=== PATIENT | female | born 1940 | race Caucasian/White ===

== ENCOUNTER 2018-10-08 10:32 | Inpatient (IN) | payer MEDICAID, MEDICARE, OTHER ==
[~2018-10-08] VITALS: Ht 172.7 cm; Wt 68.0 kg
[~2018-10-08 10:32] MED LIST: ASPIRIN81 M2 PO; Z.0.B-121000 MCG PO
[2018-10-08] MEDS ORDERED: METHYLPREDNISOLONE SOD SUCC 125 MG/2ML VIAL IV ONE ×2 (11:00→16:30)
[2018-10-08] MEDS: ALBUTEROL/IPRATROPIUM 3 ML NEB NEB SCH ×3 (11:00→19:15)
[2018-10-08 11:36] LABS: BASOPHILS % 0.2 % (0.0-1.0); EOSINOPHILS # (AUTO) 0.1 (0.0-0.4); EOSINOPHILS % 0.8 % (0.0-6.0); HEMATOCRIT 26.6 % (34.2-44.1); HEMOGLOBIN 8.2 g/dL (12.0-16.0); LYMPHOCYTES # (AUTO) 0.8 (1.0-3.2); LYMPHOCYTES % 5.8 % (18.0-39.1); MEAN CORPUSCULAR HEMOGLOBIN 22.1 pg (28-32); MEAN CORPUSCULAR HGB CONC 30.8 g/dL (31-35); MEAN CORPUSCULAR VOLUME 71.7 fL (81-99); MONOCYTES # (AUTO) 1.2 (0.2-0.8); MONOCYTES % 8.4 % (4.4-11.3); NEUTROPHILS # (AUTO) 11.9 (2.1-6.9); PLATELET COUNT 325 x10e3/uL (140-360); RED BLOOD COUNT 3.71 x10e6/uL (3.6-5.1); RED CELL DISTRIBUTION WIDTH 18.6 % (11.7-14.4)
[2018-10-08 11:49] LABS: CLARITY,URINE HAZY (CLEAR); COLOR,URINE YELLOW (YELLOW); LEUKOCYTE ESTERASE ,URINE TRACE (NEGATIVE); NITRITE,URINE NEGATIVE (NEGATIVE); PROTEIN,URINE DIPSTICK TRACE (NEGATIVE)
[2018-10-08 11:50] LABS: BILIRUBIN,URINE NEGATIVE (NEGATIVE); KETONES,URINE NEGATIVE (NEGATIVE); URINE UROBILINOGEN 4 mg/dL (0.2 - 1)
[2018-10-08 11:59] LABS: ALBUMIN/GLOBULIN RATIO 0.7 (0.8-2.0); ALKALINE PHOSPHATASE 87 IU/L (40-150); ANION GAP 12.8 mmol/L (8-16); BLOOD UREA NITROGEN 10 mg/dL (7-26); BUN/CREATININE RATIO 13 (6-25); CALCIUM 9.2 mg/dL (8.4-10.2); CARBON DIOXIDE 25 mmol/L (22-29); CHLORIDE 91 mmol/L (98-107); CREATINE KINASE 27 IU/L (29-168); CREATININE, SERUM 0.79 mg/dL (0.57-1.11); EST GLOMERULAR FILTRATION RATE > 60 ML/MIN (60-); GLUCOSE 110 mg/dL (74-118); POTASSIUM 3.8 mmol/L (3.5-5.1); SODIUM 125 mmol/L (136-145)
--- NOTE | 2018-10-08 11:59 | Diagnostic Imaging Report ---
Examination: Single AP view of the chest. COMPARISON: None. INDICATION: Shortness of breath, COPD, bronchitis DISCUSSION: The lungs are hyperinflated with hyperlucency of the left lung apex. Calcified left basal granuloma. Right apical pleural-parenchymal scar. No airspace consolidation or pneumothorax. Tortuosity and atherosclerotic calcification of the thoracic aorta. No acute osseous abnormality. IMPRESSION: Pulmonary hyperinflation in keeping with COPD. Multifocal fibrotic changes, likely postinfectious and/or age-related. No consolidative pneumonia. Signed by: Dr. Feliz Tellez M.D. on 10/08/2018 11:56 AM
[2018-10-08 12:02] LABS: ALANINE AMINOTRANSFERASE < 6 IU/L (0-55)
[2018-10-08 12:17] LABS: BACTERIA,URINE FEW /HPF; EPITHELIAL CELLS,URINE RARE /LPF; TRANSITIONAL EPI CELLS,URINE RARE; WBC,URINE (MAN) 0-5 /HPF (0-5)
[2018-10-08 12:32] LABS: INR 0.93
[2018-10-08 12:33] LABS: PARTIAL THROMBOPLASTIN TIME 30.3 seconds (23.8-35.5)
[2018-10-08] MEDS ORDERED: ACETAMINOPHEN 325 MG TAB PO ONE (15:45)
[2018-10-08] MEDS ORDERED: CEFTRIAXONE SOD 1 GM/NS 50 ML 50 ML IV ONE (15:45)
[2018-10-08 16:15] LABS: ABG HCO3 22 mmol/L (23-28); ABG PCO2 34 mmHg (41-51); ABG PH 7.43 (7.31-7.41); ABG PO2 114 mmHg (80-105)
[2018-10-08 17:04] LABS: STREPTOCOCCUS GRP A ANTIGEN NEGATIVE (NEGATIVE)
[2018-10-08 17:14] LABS: INFLUENZAE A&B ANTIGEN (RAPID) NEGATIVE (NEGATIVE)
[2018-10-08] MEDS: ALBUTEROL SULF 0.083% NEB SOLN 3 ML NEB NEB SCH ×2 (20:15→23:00)
[2018-10-08] MEDS ORDERED: CEFTRIAXONE SOD 1 GRAM/0.9% SOD CHL 50ML BAG IV SCH (20:15)
[2018-10-08] MEDS ORDERED: AZITHROMYCIN 500MG/SOD CHL 0.9% 250ML BAG IV SCH (20:15)
--- NOTE | 2018-10-08 20:25 | Diagnostic Imaging Report ---
EXAMINATION: CT of the chest with contrast, PE protocol. TECHNIQUE: Spiral CT images of the chest were performed from the lung apices through the level of the adrenal glands after the IV administration of 100 cc of Isovue 370. Thin section reconstructions were obtained with special concentration on the pulmonary arteries. Coronal and sagittal reformatted images were performed. COMPARISON: <none> CLINICAL HISTORY:Hypoxemia DISCUSSION: Lungs: No filling defects are identified in the main, right or left pulmonary arteries to their segmental levels, to suggest pulmonary embolism. Marked bilateral centrilobular emphysematous changes. Focal, irregular shaped area of consolidation in the posterior right upper lobe (series 3, image 31), with posterior and inferior extension along the superior portion of the right major fissure (for exam double series 3, image 44). Biapical pleural parenchymal scarring. Patchy groundglass opacities in the posterior aspect of the right lower lobe, which may reflect dependent atelectasis. Linear opacities in the left lower lobe (series 3, image 83) consistent with subsegmental atelectasis or scarring. Additional focal ground glass opacities are noted in the anterior right upper lobe against the minor fissure (series 3, image 67 and sagittal image 30). Airways: <The major airways are clear.> Pleura: <There is no evidence of pleural effusion or pneumothorax.> Heart and mediastinum: Thyroid is unremarkable. Heart size is normal. No pericardial effusion. Atherosclerotic calcification of the coronary arteries and thoracic aorta. Aorta is nonaneurysmal. Main pulmonary artery is normal in caliber, measuring 2.4 cm. Lymph nodes: Mildly enlarged right hilar node, which measures 1.1 cm in short axis (coronal image 41). No mediastinal or axillary adenopathy. Abdomen: The visualized portions of the liver, spleen, pancreas and kidneys and adrenal glands are unremarkable. Bones and soft tissues: No aggressive lytic lesions. Generalized osteopenia. Degenerative disc changes in the thoracic spine. Soft tissues are grossly unremarkable. IMPRESSION: 1. No CT evidence of pulmonary embolism. 2. Focal irregularly shaped area of consolidation in the posterior right upper lobe, which may represent pneumonia, in the appropriate clinical setting. A primary bronchogenic neoplasm is also a consideration, given the extensive emphysematous changes. Recommend follow-up chest CT 3-4 weeks after appropriate treatment for reevaluation. 3. Mildly enlarged right hilar node, likely reactive in the setting of infection or metastatic in the setting of neoplasm. 4. Additional focal groundglass opacities in the anterior right upper lobe against the minor fissure likely represent focal scarring Signed by: Dr. Cj Dominguez M.D. on 10/08/2018 8:22 PM
[2018-10-08] MEDS ORDERED: SODIUM CHLORIDE 0.9% 50ML 50 ML ONE (21:18)
[2018-10-08] MEDS ORDERED: IOPAMIDOL 370 MG/ML 200 ML INFUS..BTL INJ ONE (21:18)
[2018-10-08] MEDS: AZITHROMYCIN 500MG/NS 250 ML 250 ML IV SCH (21:38)
[2018-10-08 21:42] LABS: CREATINE KINASE MB 1.4 ng/mL (0-5.0)
[2018-10-08] MEDS ORDERED: METHYLPREDNISOLONE SOD SUCC 40 MG/ML VIAL 1ML IV SCH (22:00)
--- OUTSIDE RECORDS SUMMARY | 2018-10-08 22:55 | XMS REPORT ---
Author Author [facility] Address Unknown Phone Unavailable Care Team Providers Care Court Interpreter Name Role Phone Jorge L MENA Unavailable Unavailable Problems This patient has no known problems. Allergies, Adverse Reactions, Alerts This patient has no known allergies or adverse reactions. Medications This patient has no known medications. Results Test Description Test Time Test Comments Text Results Atomic Results Result Comments CT CHEST W 2018-10-08 20:13:00 [place] [address] Patient Name: VERONIKA PLATA MR #: [id number] : 1940 Age/Sex: 78/F Req #: [id number] Adm Physician: Ordered by: GABY DIEZ [employer] Report #: [id number] Location: ER Room/Bed: Procedure: [id number] CT/CT CHEST W Exam Date: 10/08/18 Exam Time: 1909 REPORT STATUS: Signed EXAMINATION: CT of the chest with contrast, PE protocol. TECHNIQUE: Spiral CT images of the chest were performed from the lung apices through the level of the adrenal glands after the IV administration of 100 cc of Isovue 370. Thin section reconstructions were obtained with special concentration on the pulmonary arteries. Coronal and sagittal reformatted images were performed. COMPARISON: <none> CLINICAL HISTORY:Hypoxemia DISCUSSION: Lungs: No filling defects are identified in the main, right or left pulmonary arteries to their segmental levels, to suggest pulmonary embolism. Marked bilateral centrilobular emphysematous changes. Focal, irregular shaped area of consolidation in the posterior right upper lobe (series 3, image 31), with posterior and inferior extension along the superior portion of the right major fissure (for exam double series 3, image 44). Biapical pleural parenchymal scarring. Patchy groundglass opacities in the posterior aspect of the right lower lobe, which may reflect dependent atelectasis. Linear opacities in the left lower lobe (series 3, image 83) consistent with subsegmental atelectasis or scarring. Additional focal ground glass opacities are noted in the anterior right upper lobe against the minor fissure (series 3, image 67 and sagittal image 30). Airways: <The major airways are clear.> Pleura: <There is no evidence of pleural effus ion or pneumothorax.> Heart and mediastinum: Thyroid is unremarkable. Heart size is normal. No pericardial effusion. Atherosclerotic calcification of the coronary arteries and thoracic aorta. Aorta is nonaneurysmal. Main pulmonary artery is normal in caliber, measuring 2.4 cm. Lymph nodes: Mildly enlarged right hilar node, which measures 1.1 cm in short axis (coronal image 41). No mediastinal or axillary adenopathy. Abdomen: The visualized portions of the liver, spleen, pancreas and kidneys and adrenal glands are unremarkable. Bones and soft tissues: No aggressive lytic lesions. Generalized osteopenia. Degenerative disc changes in the thoracic spine. Soft tissues are grossly unremarkable. IMPRESSION: 1. No CT evidence of pulmonary embolism. 2. Focal irregularly shaped area of consolidation in the posterior right upper lobe, which may represent pneumonia, in the appropriate clinical setting. A primary bronchogenic neoplasm is also a cons ideration, given the extensive emphysematous changes. Recommend follow-up chest CT 3-4 weeks after appropriate treatment for reevaluation. 3. Mildly enlarged right hilar node, likely reactive in the setting of infection or metastatic in the setting of neoplasm. 4. Additional focal groundglass opacities in the anterior right upper lobe against the minor fissure likely represent focal scarring Signed by: Dr. Vani Dominguez M.D. on 10/08/2018 8:22 PM Dictated By: VANI DOMINGUEZ MD 21 Transcribed By: EFREM on 10/08/182021 COPY TO: GABY DIEZ NP CHEST SINGLE (NOT PORTABLE) 2018-10-08 11:54:00 [place] [address] Patient Name: VERONIKA PLATA MR #: [id number] : 1940 Age/Sex: 78/F Req #: [id number] Adm Physician: Ordered by: GABY DIEZ NP Report #: [id number] Location: ER Room/Bed: Procedure: [id number] DX/CHEST SINGLE (NOT PORTABLE) Exam Date: 10/08/18 Exam Time: 1115 REPORT STATUS: Signed Examination: Single AP view of the chest. COMPARISON: None. INDICATION: Shortness of breath, COPD, bronchitis DISCUSSION: The lungs are hyperinflated with hyperlucency of the left lung apex. Calcified left basal granuloma. Right apical pleural-parenchymal scar. No airspace consolidation or pneumothorax. Tortuosity and atherosclerotic calcification of the thoracic aorta. No acute osseous abnormality. IMPRESSION: Pulmonary hyperinflation in keeping with COPD. Multifocal fibrotic changes, likely postinfectious and/or age- related. No consolidative pneumonia. Signed by: Kurt Ely on 10/08/2018 11:56 AM Dictated By: CHARLES FOSTER MD 115 Transcribed By: EFREM on 10/08/18 115 COPY TO: GABY DIEZ [employer]
[2018-10-09] MEDS: SODIUM CHLORIDE 0.9% 1000ML 1,000 ML IV SCH ×3 (02:12→15:27)
[2018-10-09] MEDS: ALBUTEROL/IPRATROPIUM 3 ML NEB NEB SCH (02:30)
[2018-10-09] MEDS: ALBUTEROL SULF 0.083% NEB SOLN 3 ML NEB NEB SCH ×4 (03:00→15:00)
--- NOTE | 2018-10-09 03:15 | Diagnostic Imaging Report ---
EXAMINATION: CHEST SINGLE (PORTABLE) INDICATION: Pneumonia. COMPARISON: Chest CT and chest x-ray 10/08/2018 FINDINGS: AP view TUBES and LINES: None. LUNGS: Right upper lobe patchy airspace opacities. Emphysematous changes. PLEURA: No pleural effusion or pneumothorax. HEART AND MEDIASTINUM: The cardiomediastinal silhouette is unremarkable. BONES AND SOFT TISSUES: No acute osseous lesion. Soft tissues are unremarkable. UPPER ABDOMEN: No free air under the diaphragm. IMPRESSION: Right upper lobe consolidation concerning for pneumonia in the appropriate clinical setting. Recommend follow-up chest CT in 3-4 weeks as recommended on chest CT report 10/08/2018. Signed by: DR. Virgilio Byrne MD on 10/09/2018 3:12 AM
--- NOTE | 2018-10-09 06:20 | NUR ---
History and Physical cc: hypoxia HPI: 78yoF, PCP , developed hypoxia in the 80s. Pt had cough/sob, went to urgent care, given steroids and antibiotics, went to PCP, found to have hypoxia, sent to hospital for mgmt. PMH: COPD, A.fib, PNA, HTN PSHx: unknown alleriges; see emr Fh/Sh; ; occ etoh; quit cigs; 38pk yrs meds; see MAR ROs; no SEYMOUR/vision changes/dizziness/skin rash/diarhea/vomiing; A/P: Hypoxia AECOPD with emphesematous changes Right upper lobe PNA Right hilar LAD Hyponatremia Moderate microcytic anemia Underweight state BMI 18.4 Former smoker PLAN IV abx IV steroids nebs/antihistamine Pulm consult Plan to recheck CT chest in 4 weeks Shalom Rasheed MD, PhD
[2018-10-09 06:44] LABS: HEMATOCRIT 24.3 % (34.2-44.1); HEMOGLOBIN 7.3 g/dL (12.0-16.0); LYMPHOCYTES # (AUTO) 0.4 (1.0-3.2); MEAN CORPUSCULAR HEMOGLOBIN 21.7 pg (28-32); MEAN CORPUSCULAR VOLUME 72.1 fL (81-99); MONOCYTES # (AUTO) 0.2 (0.2-0.8); MONOCYTES % 3.2 % (4.4-11.3); NEUTROPHILS # (AUTO) 6.2 (2.1-6.9); NEUTROPHILS % 89.5 % (38.7-80.0); PLATELET COUNT 291 x10e3/uL (140-360); RED BLOOD COUNT 3.37 x10e6/uL (3.6-5.1); RED CELL DISTRIBUTION WIDTH 18.6 % (11.7-14.4)
[2018-10-09] MEDS: IPRATROPIUM BROMIDE 0.02% 2.5 ML NEB NEB SCH ×5 (07:00→23:41)
[2018-10-09 07:06] LABS: ANION GAP 11.9 mmol/L (8-16); BLOOD UREA NITROGEN 13 mg/dL (7-26); BUN/CREATININE RATIO 20 (6-25); CALCIUM 8.8 mg/dL (8.4-10.2); CARBON DIOXIDE 23 mmol/L (22-29); CHLORIDE 99 mmol/L (98-107); CREATININE, SERUM 0.66 mg/dL (0.57-1.11); EST GLOMERULAR FILTRATION RATE > 60 ML/MIN (60-); GLUCOSE 124 mg/dL (74-118); POTASSIUM 3.9 mmol/L (3.5-5.1); SODIUM 130 mmol/L (136-145)
[2018-10-09 07:31] LABS: CREATINE KINASE MB 1.7 ng/mL (0-5.0)
--- NOTE | 2018-10-09 08:31 | Consultation ---
DATE OF CONSULTATION: Pulmonary Critical Care Consultation HISTORY OF PRESENT ILLNESS: The patient is an 78-year-old woman. She has a history of recurrent bronchitis. She uses Breo at home as well as a rescue inhaler. She notes dyspnea over the past 3 days. She does not complain of fevers or chest pain. PAST MEDICAL HISTORY: 1. History of recurrent bronchitis. 2. Atrial fibrillation. 3. Gastroesophageal reflux. PAST SURGICAL HISTORY: Noncontributory. ALLERGIES: THE PATIENT IS ALLERGIC TO CODEINE. FAMILY HISTORY: The family history is noncontributory. SOCIAL HISTORY: The patient quit smoking many years ago. She is not an active drinker. REVIEW OF SYSTEMS: The patient denies any fever. She has no headache. She has no neck pain. She has no sore throat. She is not having any chest pain. She does note some dyspnea. She denies abdominal pain. She has no nausea or vomiting. She has no leg edema. She has no focal neurological complaints. PHYSICAL EXAMINATION: VITAL SIGNS: The blood pressure is 104/43 and the saturation is 100% on 2 L. The pulse is 97 and the respiratory rate is 18. The T-max is 99.7. HEENT: Shows no facial swelling or erythema. The nasal mucosa is normal. The oropharynx is normal. LYMPHATIC: Shows no submandibular, cervical, or supraclavicular adenopathy. CARDIAC: Reveals a regular rate and rhythm with normal S1 and S2. There are no murmurs or rubs. LUNGS: Auscultation of lungs reveals clear breath sounds bilaterally. There is no wheezing. ABDOMEN: Soft and nontender. There is no rebound or guarding. EXTREMITIES: Show no leg edema or calf tenderness. There is no cyanosis or clubbing. SKIN: Shows no rashes. NEUROLOGICAL: Shows no focal abnormalities. LABORATORY DATA: White blood cell count is 14.2 and hemoglobin is 8.2 with an MCV of 71.7. The platelet count is 325. The sodium is 125, and the BUN to creatinine ratio is normal. The BNP is 244.9. The blood gas is 7.43, 34, 114, and 22. Influenza is negative. RADIOGRAPHIC DATA: CT scan of the chest shows a posterior right upper lobe infiltrate, suggestive of possible pneumonia. Malignancy cannot be completely excluded. IMPRESSION: 1. Community-acquired pneumonia with sepsis, present on admission. 2. Chronic obstructive pulmonary disease with acute exacerbation. 3. Microcytic anemia, secondary to chronic blood loss. PLAN: 1. The patient will be pancultured and will receive antibiotics. 2. Continue Breo as well as rescue medications as needed. 3. IV fluids. 4. Echocardiogram. 5. GI evaluation for microcytic anemia. MD ASHLEY Marinelli/ANN /[id number]
[2018-10-09] MEDS ORDERED: NON-FORMULARY MEDICATION (Aspirin 81 MG) PO SCH (09:00)
[2018-10-09] MEDS ORDERED: NON-FORMULARY MEDICATION (Cyanocobalamin (Vitamin B-12) (B-12) 1,000 MCG) PO SCH (09:00)
[2018-10-09 09:17] LABS: LYMPHOCYTES % (MANUAL) 5 % (19-48); MONOCYTES % (MANUAL) 2 % (3.4-9.0); NEUTROPHILS % (MANUAL) 93 % (40-74)
[2018-10-09] MEDS: METHYLPREDNISOLONE SOD SUCC 40 MG/ML VIAL 1ML IV SCH ×2 (10:35→22:36)
[2018-10-09] MEDS: LORATADINE 10 MG TAB PO SCH (10:36)
[2018-10-09] MEDS: ASPIRIN 81 MG ENTERIC COATED PO SCH (10:36)
[2018-10-09] MEDS: CYANOCOBALAMIN 1,000 MCG TAB PO SCH (10:37)
--- NOTE | 2018-10-09 11:08 | NUR ---
pt placed in hosp bed
[2018-10-09 14:36] LABS: CREATINE KINASE 26 IU/L (29-168)
[2018-10-09] MEDS: CEFTRIAXONE SOD 1 GM/NS 50 ML 50 ML IV SCH (15:27)
--- NOTE | 2018-10-09 17:02 | NUR ---
PT LIVES WITH HER [address] IN A HOUSE IN [place] [phone] NO DME OR HOME HEALTH HX COPD, ASTHMA, A FIB AND GERD LEFT MY CARD AT PT'S BEDSIDE PLAN: HOME WITH HOME HEALTH VS SNF
--- NOTE | 2018-10-09 17:13 | NUR ---
DR JONES IN ROOM WITH PT
[2018-10-09] MEDS ORDERED: ALBUTEROL SULFATE HFA 8GM INHALATION AEROSOL INH PRN (17:15)
[2018-10-09] MEDS ORDERED: METOPROLOL TARTRATE INJ 1 MG/ML VIAL IV PRN (17:30)
--- NOTE | 2018-10-09 17:35 | NUR ---
PT HR INCREASED TO OVER 120 EKG DONE PT IN A FIB RVR DR GALLO NOTIFIED PER DR GALLO D/C MED SURG BED MOVE PT TO IMCU ORDER METOPROLOL 10 MG IV NOW, METOPROLOL 5 MG IV Q2H PRN FOR HR > 120, D/C ALBUTEROL AND START LEVALBUTEROL Q4H, AYLIN HILL NOTIFIED, PT INFORMED
--- NOTE | 2018-10-09 17:39 | NUR ---
MED SURG 2 NOTIFIED OF PT NO LONGER GOING TO ROOM 203
[2018-10-09] MEDS ORDERED: METOPROLOL TARTRATE INJ 1 MG/ML VIAL IV NR (17:45)
--- NOTE | 2018-10-09 18:54 | Progress Note ---
DATE: 10/09/2018 Pulmonary Progress Note SUBJECTIVE: The patient had new onset of atrial fibrillation after receiving a breathing treatment. She does not complain of any chest pain. She has minimal cough. PHYSICAL EXAMINATION: VITAL SIGNS: The patient is afebrile. The blood pressure is 109/58 and the heart rate is 130-140. She has rapid atrial fibrillation. HEENT: Shows no facial swelling or erythema. The nasal mucosa is normal. The oropharynx is normal. LYMPHATIC: Shows no submandibular, cervical, or supraclavicular adenopathy. CARDIAC: Reveals an irregularly irregular rhythm with a normal S1 and S2. There are no murmurs or rubs heard. LUNGS: Auscultation of lungs reveals rhonchorous breath sounds bilaterally. There is no wheezing. ABDOMEN: Soft and nontender. There is no rebound or guarding. EXTREMITIES: Show no leg edema or calf tenderness. There is no cyanosis or clubbing. SKIN: Shows no rashes. NEUROLOGICAL: Shows no focal abnormalities. IMPRESSION: 1. Pneumonia. 2. Atrial fibrillation with rapid ventricular response. 3. Microcytic anemia secondary to chronic blood loss. 4. Chronic obstructive pulmonary disease. PLAN: 1. The patient will need diltiazem or another agent for rate control along with anticoagulation. 2. Stop nebulizer treatments unless absolutely necessary. 3. Continue IV antibiotics. 4. Evaluation for microcytic anemia. 5. Case discussed with family, nursing, and Dr. Rasheed. Rustam Cortez MD LM/ANN /[id number]
[2018-10-09] MEDS: LEVALBUTEROL HCL SOLN NEBU 0.63 MG/3 ML NEB INH SCH ×2 (19:26→23:44)
[2018-10-09] MEDS: AZITHROMYCIN 500MG/NS 250 ML 250 ML IV SCH (22:36)
[2018-10-10] VITALS (10 sets, daily range): BP systolic 95–122; BP diastolic 42–63
[2018-10-10] MEDS: IPRATROPIUM BROMIDE 0.02% 2.5 ML NEB NEB SCH ×3 (07:00→18:49)
[2018-10-10] MEDS: LEVALBUTEROL HCL SOLN NEBU 0.63 MG/3 ML NEB INH SCH ×4 (07:00→22:03)
[2018-10-10] MEDS: METHYLPREDNISOLONE SOD SUCC 40 MG/ML VIAL 1ML IV SCH ×2 (08:58→20:38)
[2018-10-10] MEDS: LORATADINE 10 MG TAB PO SCH (08:58)
[2018-10-10] MEDS: CYANOCOBALAMIN 1,000 MCG TAB PO SCH (08:58)
[2018-10-10] MEDS: ASPIRIN 81 MG ENTERIC COATED PO SCH (08:58)
--- NOTE | 2018-10-10 12:04 | NUR ---
EDUCATED ABOUT IMM, SIGNED, FILED IN CHART, WITH COPY LEFT WITH FAMILY AT BEDSIDE.
[2018-10-10] MEDS: SODIUM CHLORIDE 0.9% 1000ML 1,000 ML IV SCH (12:08)
--- NOTE | 2018-10-10 12:20 | NUR ---
informed dr herbert, h/h 7.3, orders received for repeat H/H
[2018-10-10 12:58] LABS: HEMATOCRIT 22.9 % (34.2-44.1); HEMOGLOBIN 6.9 g/dL (12.0-16.0)
[2018-10-10] MEDS ORDERED: SODIUM CHLORIDE 0.9% 250ML 250 ML IV ONE (13:45)
[2018-10-10] MEDS: CEFTRIAXONE SOD 1 GM/NS 50 ML 50 ML IV SCH (14:55)
--- NOTE | 2018-10-10 15:05 | Progress Note ---
DATE: 10/10/2018 Pulmonary Critical Care Progress Note SUBJECTIVE: The patient had rapid atrial fibrillation last night. She received some metoprolol and now has normal sinus rhythm. Her breathing is improved and she has less wheezing. She is not complaining of cough. OBJECTIVE: VITAL SIGNS: The patient is afebrile. The blood pressure is 95/52 and the pulse is 84. The saturation is 98% on 2 L. HEENT: Shows no facial swelling or erythema. The oropharynx is normal. LYMPHATIC: Shows no submandibular, cervical, or supraclavicular adenopathy. CARDIAC: Reveals a regular rate and rhythm with a normal S1 and S2. LUNGS: Auscultation of lungs reveals clear breath sounds bilaterally. There is no wheezing. ABDOMEN: Soft, nontender. There is no rebound or guarding. EXTREMITIES: Show no leg edema or calf tenderness. LABORATORY DATA: The white blood cell count is 6.88 and the hemoglobin is 7.3. The platelet count is 281. The BUN to creatinine ratio is normal. The other electrolytes are within normal limits. IMPRESSION: 1. Community-acquired pneumonia. 2. Atrial fibrillation with rapid ventricular response. 3. Microcytic anemia secondary to chronic blood loss. 4. Chronic obstructive pulmonary disease. PLAN: 1. Continue antibiotics. The patient will need a repeat CT scan in six weeks as an outpatient to make sure the infiltrate has resolved. 2. Evaluation for atrial fibrillation including echocardiogram, thyroid studies, and Cardiology evaluation. 3. The patient will require anticoagulation after anemia has been evaluated. 4. Evaluation for microcytic anemia. MD ASHLEY Marinelli/ANN /[id number]
--- NOTE | 2018-10-10 15:20 | NUR ---
Nutrition Screen Note RD Recommendation for Physician: -Continue regular diet as ordered Plan of Care: RD following, monitoring for tolerance and adequacy Nutrition reason for involvement: BMI Primary Diagnose(s): 1. Community-acquired pneumonia. 2. Atrial fibrillation with rapid ventricular response. 3. Microcytic anemia secondary to chronic blood loss. 4. Chronic obstructive pulmonary disease. PMH: bronchitis, Afib, GERD Ht: 68in Wt: 132lb BMI: 20.1kg/m2 IBW: 140lb RD Assessment: (10/10) Chart reviewed. Labs and meds reviewed. 78yo F, who was admitted for PNA. Visited pt in the room. Pt reported good appetite with ~75% observed meal intake. No GI complains noted. Pt reported some chewing difficulty due to her denture; diet modification has been placed. No swallowing difficulty noted. Pt denied any recent weight loss with UBW 124 130lbs. Will continue to monitor and follow. Current Diet: Regular diet Malnutrition Evaluation (10/10) The patient does not meet criteria for a specified degree of malnutrition at this time. Will re-evaluate at follow-up as appropriate. Diet Education Needs Assessment: Diet education not indicated. Nutrition Care Level: low Signed: Shanika Hollis, MS, RD, LD
--- NOTE | 2018-10-10 16:26 | NUR ---
Addendum to H&P: PE tired appearing ns1s2 REDUCED BS soft nt nd no e/t a&ox3; rae skin dry flat affect Shalom Rasheed MD, PhD.
--- NOTE | 2018-10-10 16:27 | NUR ---
IM- Progress Note O/N; no events ROs; no SEYMOUR/vision changes/dizziness/skin rash/diarhea/vomiing; PE tired appearing anicteric ns1s2 REDUCED BS soft nt nd no e/t skin dry a&ox3; rae flat affect labs/meds rev'd A/P: Hypoxia AECOPD with emphesematous changes Right upper lobe PNA Right hilar LAD Hyponatremia Moderate microcytic anemia Underweight state BMI 18.4 Former smoker PLAN IV abx IV steroids nebs/antihistamine Pulm consult Plan to recheck CT chest in 4 weeks Shalom Rasheed MD, PhD
[2018-10-10] MEDS: PANTOPRAZOLE 40 MG 10ML VIAL IV SCH (20:02)
[2018-10-10] MEDS: ACETAMINOPHEN 325 MG TAB PO PRN (20:37)
[2018-10-10] MEDS: AZITHROMYCIN 500MG/NS 250 ML 250 ML IV SCH (20:38)
--- NOTE | 2018-10-10 21:10 | NUR ---
round the patient at this time.
[2018-10-10] MEDS ORDERED: SODIUM CHLORIDE 0.9% 250ML 250 ML ONE (22:02)
--- NOTE | 2018-10-10 22:31 | NUR ---
2 of 2units of blood transfusing at this time. Will continue to monitor.
[2018-10-10 23:09] LABS: % IRON SATURATION 1 % (15-50); IRON 5 ug/dL (50-170); TOTAL IRON BINDING CAPACITY 407 ug/dL (261-478); TRANSFERRIN 291 mg/dL (180-382)
[2018-10-11] VITALS (8 sets, daily range): BP systolic 104–157; BP diastolic 62–84
[2018-10-11] MEDS: SODIUM CHLORIDE 0.9% 1000ML 1,000 ML IV SCH (00:34)
[2018-10-11] MEDS ORDERED: SODIUM CHLORIDE 0.9% 250ML 250 ML ONE (02:39)
[2018-10-11] MEDS: LEVALBUTEROL HCL SOLN NEBU 0.63 MG/3 ML NEB INH SCH ×3 (03:00→15:17)
[2018-10-11] MEDS: IPRATROPIUM BROMIDE 0.02% 2.5 ML NEB NEB SCH ×3 (03:00→15:17)
--- NOTE | 2018-10-11 03:58 | Consultation ---
DATE OF CONSULTATION: 10/10/2018 GI Consult Note. REASON FOR CONSULTATION: Microcytic anemia. HISTORY OF PRESENTING ILLNESS: An 78-year-old very pleasant and coherent female, who got admitted with recurrent bronchitis. CT showed pneumonia. She is currently being treated with antibiotics. Blood work revealed anemia with a hemoglobin of 6.9 and MCV 72.9. GI is being consulted for evaluation of microcytic anemia. The patient's ferritin level is 188. Denies any dark stool. No prior history of peptic ulcer disease. No known history of any celiac disease. Never had any upper endoscopy or colonoscopy. She is not on any anticoagulants. She is also not on any NSAIDs on a chronic basis. REVIEW OF SYSTEMS: Twelve-point system reviewed. Symptomatology is limited as per HPI. PAST MEDICAL HISTORY: Recurrent bronchitis, atrial fibrillation (not on any anticoagulants as per home medications), and gastroesophageal reflux disease. PAST SURGICAL HISTORY: None. SOCIAL HISTORY: No smoking, alcohol, or any illicit drug use. She is a former smoker, smoked in the remote past. FAMILY HISTORY: Noncontributory given her advanced age. ALLERGIES: TO CODEINE. HOME MEDICATIONS: Aspirin and vitamin B12, inpatient medication list reviewed. She is on azithromycin and ceftriaxone for community-acquired pneumonia. PHYSICAL EXAMINATION: VITAL SIGNS: Temperature 98.5, pulse 97, respirations 19, blood pressure 122/52, and oxygen saturation 100% on 2 L of nasal cannula. GENERAL: Not in any acute distress. HEENT: Oral mucosa is moist. Anicteric sclerae. LYMPHATICS: No neck or axillary adenopathy. CVS: S1 and S2, irregular. LUNGS: Bilateral occasional scattered rhonchi with rales. Rales are more pronounced in the right upper lung field. ABDOMEN: Soft, nondistended, and nontender. No palpable mass or hernia. Positive bowel sounds. EXTREMITIES: Warm. No leg edema. LABORATORY DATA: WBC 6.88, hemoglobin 7.3, hematocrit 24.3, MCV 72.1, and platelet count 291. Sodium 130, potassium 3.9, chloride 99, bicarb 23, BUN 13, and creatinine 0.66. Ferritin is 188.3. Liver enzymes normal. Chest x-ray, right upper lobe consolidation concerning for pneumonia in appropriate clinical setting. Recommend followup chest CT in 3-4 weeks as recommended on the chest CT report on 10/08/2018. CT chest showed: 1. No evidence of any pulmonary embolism. 2. Focal irregularly shaped area of consolidation in the posterior right upper lobe, which may represent pneumonia. Mildly enlarged right hilar node, likely reactive in the setting of an infection or metastatic in the setting of neoplasm. 3. Additional focal ground-glass opacities in the anterior right upper lobe against the minor fissure, likely represents the focal scarring. IMPRESSION: 1. Community-acquired pneumonia. 2. Microcytic anemia, ferritin is elevated (could be acute phase reactant at this time). PLAN: Check an iron profile that should include TIBC, iron saturation. Stool for occult blood. The patient agrees to transfuse the blood to keep the hemoglobin at least above 7. Once the patient has recovered from pneumonia, then I will follow her in my office as an outpatient. I have given patient's daughter, Louann, my business card. She will follow up with me after discharge. I thank Dr. Rasheed for allowing me to participate in the care of this patient. Domenico Lynch MD SA/ANN /[id number]
--- NOTE | 2018-10-11 04:10 | NUR ---
3 of 3 units of blood transfusing at this time. Will continue to monitor
--- NOTE | 2018-10-11 06:54 | NUR ---
IM- Progress Note O/N; no events ROs; no SEYMOUR/vision changes/dizziness/skin rash/diarhea/vomiing; PE tired appearing anicteric ns1s2 REDUCED BS soft nt nd no e/t skin dry a&ox3; rae flat affect labs/meds rev'd A/P: Hypoxia AECOPD with emphesematous changes Right upper lobe PNA Right hilar LAD Hyponatremia Moderate microcytic anemia Underweight state BMI 18.4 Former smoker PLAN IV abx IV steroids nebs/antihistamine Pulm consult Plan to recheck CT chest in 4 weeks 10/11 Mod-severe anemia- transfuse; stool occult; GI consult; Folic acid and Iron-deficiency deficiency- start supplement; Shalom Rasheed MD, PhD
[2018-10-11 07:21] LABS: HEMATOCRIT 34.2 % (34.2-44.1); HEMOGLOBIN 10.7 g/dL (12.0-16.0)
[2018-10-11 07:33] LABS: % IRON SATURATION 15 % (15-50); IRON 54 ug/dL (50-170); TOTAL IRON BINDING CAPACITY 370 ug/dL (261-478); TRANSFERRIN 264 mg/dL (180-382)
--- NOTE | 2018-10-11 07:39 | NUR ---
Report given to AM nurse,walking round done.
[2018-10-11] MEDS: ASPIRIN 81 MG ENTERIC COATED PO SCH (09:10)
[2018-10-11] MEDS: PANTOPRAZOLE 40 MG 10ML VIAL IV SCH ×2 (09:10→16:47)
[2018-10-11] MEDS: METHYLPREDNISOLONE SOD SUCC 40 MG/ML VIAL 1ML IV SCH ×2 (09:10→21:24)
[2018-10-11] MEDS: CYANOCOBALAMIN 1,000 MCG TAB PO SCH (09:10)
[2018-10-11] MEDS: FERROUS SULFATE 325 MG TAB PO SCH ×2 (09:10→16:47)
[2018-10-11] MEDS: LORATADINE 10 MG TAB PO SCH (09:10)
[2018-10-11] MEDS: FOLIC ACID 1 MG TAB PO SCH (09:10)
[2018-10-11] MEDS: SODIUM FERRIC GLUCONATE COMPLX 125 MG in SODIUM CHLORIDE 0.9% 100 ML 100 ML IV SCH (09:20)
--- NOTE | 2018-10-11 16:15 | NUR ---
patient c/o SOB after breathing tx administered, labored breathing and increased respirations noted, RT at bedside, and 02 increased at this time, will continue to monitor
[2018-10-11] MEDS: CEFTRIAXONE SOD 1 GM/NS 50 ML 50 ML IV SCH (16:47)
--- NOTE | 2018-10-11 16:53 | NUR ---
dr zavala informed patient with labored breathing and sob, orders received
[2018-10-11] MEDS ORDERED: LEVALBUTEROL HCL SOLN NEBU 0.63 MG/3 ML NEB INH PRN (17:00)
[2018-10-11] MEDS ORDERED: IPRATROPIUM BROMIDE 0.02% 2.5 ML NEB NEB PRN (17:00)
[2018-10-11] MEDS ORDERED: ALBUTEROL SULFATE HFA 8GM INHALATION AEROSOL INH PRN (17:15)
[2018-10-11] MEDS ORDERED: FUROSEMIDE INJ 10 MG/ML 2 ML VIAL IV NR (17:30)
--- NOTE | 2018-10-11 18:12 | Diagnostic Imaging Report ---
EXAMINATION: CHEST SINGLE (PORTABLE) COMPARISON: Chest x-ray 10/09/2018, CTA chest 10/08/2018 INDICATION: ^sob ^[id number] ^1700 ^Y DISCUSSION: Frontal view of the chest obtained at 1659 hours. HEART AND MEDIASTINUM: The cardiomediastinal silhouette is stable. LINES: None. LUNGS: Stable emphysematous changes. There are worsening multifocal airspace opacities throughout the right lung. Left lung is stable with a calcified granuloma in the base. No pneumonia or pulmonary edema. PLEURA: There is blunting of the right lateral costophrenic angle. No pneumothorax BONES AND SOFT TISSUES: No focal osseous lesion. The soft tissues are normal. IMPRESSION: Worsening opacities in the right lung suggestive of pneumonia. New small right pleural effusion. Pulmonary hyperinflation consistent with emphysema. Signed by: Dr. Terrence Allan MD on 10/11/2018 6:09 PM
--- NOTE | 2018-10-11 18:29 | NUR ---
informed dr herbert of blood culture results, orders received and entered
[2018-10-11] MEDS ORDERED: VANCOMYCIN 1GM/NS 250 ML 250 ML IV ONE (18:45)
--- NOTE | 2018-10-11 19:26 | Progress Note ---
DATE: 10/11/2018 SUBJECTIVE: The patient received packed red blood cells today. She subsequently received breathing treatment. After the breathing treatment, she had a fast heart rate, more difficulty breathing. OBJECTIVE: VITAL SIGNS: The blood pressure is 157/84 and the saturation is 94% on 5 L. Pulse is 110 to 120. HEENT: Shows no facial swelling or erythema. CARDIAC: Reveals a regular rate and rhythm with a normal S1 and S2. LUNGS: Auscultation of lungs reveals crackles at the bases. There is no wheezing. ABDOMEN: Soft and nontender. There is no rebound or guarding. EXTREMITIES: Show no leg edema or calf tenderness. There is no cyanosis clubbing. SKIN: Shows no rashes. NEUROLOGICAL: Shows no focal abnormalities. IMPRESSION: 1. Paroxysmal atrial fibrillation. 2. Anemia secondary to chronic blood loss. 3. Chronic obstructive pulmonary disease. 4. Community-acquired pneumonia. PLAN: 1. The patient will receive IV Lasix x1. 2. Stop nebulizer treatments as these seem to be precipitating atrial fibrillation. 3. Cardiac evaluation for atrial fibrillation and possible anticoagulation. 4. The patient will need a GI workup after she is stable. 5. Continue Solu-Medrol twice daily. Rustam Cortez MD [facility]/ANN /[id number]
[2018-10-11] MEDS: ACETAMINOPHEN 325 MG TAB PO PRN (20:07)
--- NOTE | 2018-10-11 21:10 | NUR ---
IV was leaking, assisted to start new IV on her right forearm 20G at this time. Will continue to monitor.
[2018-10-11] MEDS: AZITHROMYCIN 500MG/NS 250 ML 250 ML IV SCH (21:24)
[2018-10-12] VITALS (9 sets, daily range): BP systolic 110–137; BP diastolic 41–113
--- NOTE | 2018-10-12 00:23 | Progress Note ---
DATE: 10/11/2018 SUBJECTIVE: The patient reports no abdominal pain, tolerating oral feeds. She has had 1 or 2 small bowel movements. Stool was noted to be soft brown. REVIEW OF SYSTEMS: GENERAL: No fever or chills. RESPIRATORY: Occasional cough and shortness of breath. CVS: No chest pain or palpitation. MEDICATIONS: Reviewed as per MAR. She is on intravenous azithromycin, intravenous ceftriaxone as well as intravenous Solu-Medrol along with other medications. PHYSICAL EXAMINATION: VITAL SIGNS: Temperature 100.2, pulse ranging fro 78-100, respirations 20 to 25, blood pressure 119/68, oxygen saturation 100% on 4 L of nasal cannula. GENERAL: Not in any acute distress. Very alert, elderly, not frail, very coherent. HEENT: Oral mucosa is moist. Anicteric sclerae. CVS: S1 and S2 regular, but tachy. LUNGS: Bilateral occasional scattered rales with some rhonchi. ABDOMEN: Soft, nondistended, nontender. No palpable mass or hernia. Positive bowel sounds. EXTREMITIES: Warm. No leg edema. LABORATORY DATA: WBC 6.88; hemoglobin 7.3, dropped down to 6.9, and after blood transfusion, it has come up to 10.7; hematocrit 34.2; and platelet count 291. Sodium 130, potassium 3.9, chloride 99, bicarb 23, BUN 13, creatinine 0.66, glucose 124. PT 13.0, INR 0.93 on 10/08/2018. Chest x-ray, worsening opacities in the right lung suggestive of pneumonia. This was done today. TIBC 407. Stool occult blood negative. IMPRESSION: Microcytic anemia, FOBT x1 is negative, and appropriate rise in hemoglobin post transfusion. Recommend to continue treating pneumonia. Once the patient is stable, then we will follow her as an outpatient for further workup and evaluation of microcytic anemia. Domenico Lynch MD [facility]/ANN /[id number] MTDD
[2018-10-12 05:21] LABS: BASOPHILS % 0.1 % (0.0-1.0); HEMATOCRIT 38.3 % (34.2-44.1); HEMOGLOBIN 11.8 g/dL (12.0-16.0); LYMPHOCYTES # (AUTO) 0.8 (1.0-3.2); LYMPHOCYTES % 5.3 % (18.0-39.1); MEAN CORPUSCULAR HEMOGLOBIN 24.6 pg (28-32); MEAN CORPUSCULAR HGB CONC 30.8 g/dL (31-35); MONOCYTES # (AUTO) 0.5 (0.2-0.8); MONOCYTES % 3.8 % (4.4-11.3); NEUTROPHILS # (AUTO) 12.9 (2.1-6.9); NEUTROPHILS % 89.3 % (38.7-80.0); PLATELET COUNT 329 x10e3/uL (140-360); RED BLOOD COUNT 4.79 x10e6/uL (3.6-5.1); RED CELL DISTRIBUTION WIDTH 19.9 % (11.7-14.4)
[2018-10-12 05:36] LABS: BLOOD UREA NITROGEN 10 mg/dL (7-26); BUN/CREATININE RATIO 13 (6-25); CALCIUM 8.6 mg/dL (8.4-10.2); CARBON DIOXIDE 28 mmol/L (22-29); CHLORIDE 102 mmol/L (98-107); CREATININE, SERUM 0.75 mg/dL (0.57-1.11); EST GLOMERULAR FILTRATION RATE > 60 ML/MIN (60-); GLUCOSE 100 mg/dL (74-118); SODIUM 137 mmol/L (136-145)
--- NOTE | 2018-10-12 07:15 | NUR ---
Report given to AM nurse,walking round done. No issued noted.
[2018-10-12] MEDS: PANTOPRAZOLE 40 MG 10ML VIAL IV SCH ×2 (09:46→17:59)
[2018-10-12] MEDS: METHYLPREDNISOLONE SOD SUCC 40 MG/ML VIAL 1ML IV SCH ×2 (09:46→20:52)
[2018-10-12] MEDS: ASPIRIN 81 MG ENTERIC COATED PO SCH (09:46)
[2018-10-12] MEDS: CYANOCOBALAMIN 1,000 MCG TAB PO SCH (09:46)
[2018-10-12] MEDS: FOLIC ACID 1 MG TAB PO SCH (09:46)
[2018-10-12] MEDS: LORATADINE 10 MG TAB PO SCH (09:46)
[2018-10-12] MEDS: SODIUM FERRIC GLUCONATE COMPLX 125 MG in SODIUM CHLORIDE 0.9% 100 ML 100 ML IV SCH (09:46)
[2018-10-12] MEDS: FERROUS SULFATE 325 MG TAB PO SCH ×2 (09:52→17:59)
--- NOTE | 2018-10-12 10:14 | Progress Note ---
DATE: Pulmonary Progress Note SUBJECTIVE: The patient received some Lasix last night and her breathing treatments were held. She is in normal sinus rhythm today and she has less congestion and less dyspnea. PHYSICAL EXAMINATION: VITAL SIGNS: The blood pressure is 115/41 and the saturation is 100% on 4 liters. The pulse is 70. HEENT: No facial swelling or erythema. The nasal mucosa is normal. The oropharynx is normal. LYMPHATIC: No submandibular, cervical, or supraclavicular adenopathy. NECK: No JVD or thyromegaly. There is no nuchal rigidity. CARDIAC: rhythm with normal S1 and S2. There are no murmurs or rubs heard. LUNGS: Auscultation of lungs reveals few rhonchorous breath sounds bilaterally. There is no wheezing. ABDOMEN: Soft and nontender. There is no rebound or guarding. EXTREMITIES: No leg edema or calf tenderness. There is no cyanosis or clubbing. SKIN: No rashes. LABORATORY DATA: White blood cell count is 14.4 and hemoglobin is 11.8. The platelet count is 329. BUN to creatinine ratio is normal. The other electrolytes are within normal limits. IMPRESSION: 1. Community-acquired pneumonia. 2. Paroxysmal atrial fibrillation. 3. Chronic systolic congestive heart failure. 4. Anemia secondary to chronic blood loss. 5. Chronic obstructive pulmonary disease. PLAN: 1. The patient will continue antibiotics. 2. Swallowing evaluation to rule out aspiration pneumonia. 3. The patient will probably require anticoagulation for the atrial fibrillation. Cardiology evaluation; the patient will probably require amiodarone or Multaq to prevent recurrences. 4. The patient should not receive nebulizer treatments. She should receive hand-held inhalers for rescue to avoid precipitating atrial fibrillation. 5. The patient will complete GI evaluation as an outpatient. Rustam Cortez MD [facility]/LOISL /[id number]
--- NOTE | 2018-10-12 14:30 | NUR ---
ST Note: Modified Barium Swallow study complete. Pt demonstrated SILENT aspiration of thin liquids but protected her airway with all other consistencies tested. Recommend regular diet, nectar thick liquids, no mixed consistencies, outpatient dysphagia therapy. Education completed at length. Full report to follow.
--- NOTE | 2018-10-12 14:53 | NUR ---
EDUCATED ABOUT IMM, SIGNED, FILED IN CHART, WITH COPY LEFT WITH FAMILY AT BEDSIDE.
--- NOTE | 2018-10-12 17:56 | NUR ---
Emily Ybarra, correctional supervisor made aware that patient had changed rhythm form Sinus arrhythmia to A-fib intermittently, with heart rate controlled, no new orders received. Addendum: 10/12/18 at 1929 by Azucena Keyes RN Discard note entered incorrect patient.
[2018-10-12] MEDS: CEFTRIAXONE SOD 1 GM/NS 50 ML 50 ML IV SCH (17:59)
--- NOTE | 2018-10-12 18:08 | NUR ---
IM- Progress Note O/N; no events ROs; no SEYMOUR/vision changes/dizziness/skin rash/diarhea/vomiing; PE tired appearing anicteric ns1s2 REDUCED BS soft nt nd no e/t skin dry a&ox3; rae flat affect labs/meds rev'd A/P: Hypoxia AECOPD with emphesematous changes Right upper lobe PNA Right hilar LAD Hyponatremia Moderate microcytic anemia Underweight state BMI 18.4 Former smoker PLAN IV abx IV steroids nebs/antihistamine Pulm consult Plan to recheck CT chest in 4 weeks 10/11 Mod-severe anemia- transfuse; stool occult; GI consult; Folic acid and Iron-deficiency deficiency- start supplement; 10/12 Hb stable after transfusion; O2 needs- wean as ray; MBS you Rasheed MD, PhD
[2018-10-12] MEDS: AZITHROMYCIN 500MG/NS 250 ML 250 ML IV SCH (20:52)
[2018-10-13] VITALS (7 sets, daily range): BP systolic 127–139; BP diastolic 57–74
--- NOTE | 2018-10-13 03:17 | NUR ---
IV site was leaking. Assisted to started new IV on left forearm 20G at this time. Will continue to monitor.
[2018-10-13 05:51] LABS: BASOPHILS % 0.3 % (0.0-1.0); EOSINOPHILS % 0.1 % (0.0-6.0); HEMATOCRIT 39.1 % (34.2-44.1); HEMOGLOBIN 12.1 g/dL (12.0-16.0); LYMPHOCYTES # (AUTO) 1.3 (1.0-3.2); LYMPHOCYTES % 9.5 % (18.0-39.1); MEAN CORPUSCULAR HEMOGLOBIN 24.5 pg (28-32); MEAN CORPUSCULAR HGB CONC 30.9 g/dL (31-35); MEAN CORPUSCULAR VOLUME 79.3 fL (81-99); MONOCYTES # (AUTO) 0.6 (0.2-0.8); MONOCYTES % 4.5 % (4.4-11.3); NEUTROPHILS # (AUTO) 10.8 (2.1-6.9); NEUTROPHILS % 82.1 % (38.7-80.0); PLATELET COUNT 374 x10e3/uL (140-360); RED BLOOD COUNT 4.93 x10e6/uL (3.6-5.1); RED CELL DISTRIBUTION WIDTH 20.5 % (11.7-14.4)
[2018-10-13 06:07] LABS: BLOOD UREA NITROGEN 10 mg/dL (7-26); BUN/CREATININE RATIO 13 (6-25); CALCIUM 8.9 mg/dL (8.4-10.2); CARBON DIOXIDE 33 mmol/L (22-29); CHLORIDE 99 mmol/L (98-107); CREATININE, SERUM 0.75 mg/dL (0.57-1.11); EST GLOMERULAR FILTRATION RATE > 60 ML/MIN (60-); GLUCOSE 101 mg/dL (74-118); SODIUM 136 mmol/L (136-145)
--- NOTE | 2018-10-13 06:13 | NUR ---
IM- Progress Note O/N; no events ROs; no SEYMOUR/vision changes/dizziness/skin rash/diarhea/vomiing; PE tired appearing anicteric ns1s2 REDUCED BS soft nt nd no e/t skin dry a&ox3; rae flat affect labs/meds rev'd A/P: Hypoxia AECOPD with emphesematous changes Right upper lobe PNA Right hilar LAD Hyponatremia Moderate microcytic anemia Underweight state BMI 18.4 Former smoker PLAN IV abx IV steroids nebs/antihistamine Pulm consult Plan to recheck CT chest in 4 weeks 10/11 Mod-severe anemia- transfuse; stool occult; GI consult; Folic acid and Iron-deficiency deficiency- start supplement; 10/12 Hb stable after transfusion; O2 needs- wean as ray; MBS eval 10/13 coag neg staph in 07/18 blood cx- contaminant? continue azithromycin, change ceftraixone to aztreonam. repeat blood cx; Some aspiration with thin liquids; Shalom Rasheed MD, PhD
--- NOTE | 2018-10-13 07:11 | NUR ---
Report given to BENITA VIERA.
[2018-10-13] MEDS: FOLIC ACID 1 MG TAB PO SCH (08:54)
[2018-10-13] MEDS: ASPIRIN 81 MG ENTERIC COATED PO SCH (08:54)
[2018-10-13] MEDS: LORATADINE 10 MG TAB PO SCH (08:55)
[2018-10-13] MEDS: CYANOCOBALAMIN 1,000 MCG TAB PO SCH (08:55)
[2018-10-13] MEDS: PANTOPRAZOLE 40 MG 10ML VIAL IV SCH ×2 (08:56→17:50)
[2018-10-13] MEDS: METHYLPREDNISOLONE SOD SUCC 40 MG/ML VIAL 1ML IV SCH ×2 (08:56→21:00)
[2018-10-13] MEDS: FERROUS SULFATE 325 MG TAB PO SCH ×2 (08:58→17:50)
[2018-10-13] MEDS: SODIUM FERRIC GLUCONATE COMPLX 125 MG in SODIUM CHLORIDE 0.9% 100 ML 100 ML IV SCH (09:51)
[2018-10-13] MEDS: AZTREONAM 1 GM/NS 50 ML 50 ML IV SCH ×2 (14:34→21:44)
--- NOTE | 2018-10-13 14:47 | Progress Note ---
DATE: 10/13/2018 SUBJECTIVE: The patient feels better. She did have some possible aspiration on her swallowing evaluation. PHYSICAL EXAMINATION: VITAL SIGNS: Stable. HEENT: Shows no facial swelling or erythema. CARDIAC: Reveals a regular rate and rhythm with a normal S1 and S2. LUNGS: Auscultation of lungs reveals rhonchorous breath sounds bilaterally. ABDOMEN: Soft and nontender. There is no rebound or guarding. EXTREMITIES: Show no leg edema or calf tenderness. There is no cyanosis or clubbing. SKIN: Shows no rashes. NEUROLOGICAL: Shows no focal abnormalities. LABORATORY DATA: White blood cell count is 13.1 and the platelet count is 374. The hemoglobin is 12.1. The BUN to creatinine ratio is normal. The other electrolytes are within normal limits. IMPRESSION: 1. Aspiration pneumonia. 2. Paroxysmal atrial fibrillation. 3. Chronic systolic congestive heart failure. 4. Anemia secondary to chronic blood loss. 5. Chronic obstructive pulmonary disease. PLAN: 1. Continue current antibiotics. 2. Continue treatment for atrial fibrillation. 3. The patient will need GI evaluation as an outpatient. Rustam Cortez MD [facility]/MODL /[id number]
--- NOTE | 2018-10-13 20:03 | NUR ---
Received change of shift report from AM nurse. Walking rounds completed.
[2018-10-13] MEDS: AZITHROMYCIN 500MG/NS 250 ML 250 ML IV SCH (20:30)
--- NOTE | 2018-10-13 21:45 | NUR ---
Patient sitting up in bed. O2 on 3L nc. sat at 94%. AAOx3. Patient denies pain at this time. IV to right AC dry and intact. Family at bedside. Patient up ambulate to [facility] to void. 400cc of yellow urine.
[2018-10-14] VITALS (7 sets, daily range): BP systolic 130–151; BP diastolic 56–88
--- NOTE | 2018-10-14 | NUR ---
Patient up to bedside commode with no c/o at this time.
[2018-10-14] MEDS: AZTREONAM 1 GM/NS 50 ML 50 ML IV SCH ×3 (06:00→22:00)
[2018-10-14] MEDS: PANTOPRAZOLE 40 MG 10ML VIAL IV SCH ×2 (08:32→16:30)
[2018-10-14] MEDS: LORATADINE 10 MG TAB PO SCH (08:33)
[2018-10-14] MEDS: METHYLPREDNISOLONE SOD SUCC 40 MG/ML VIAL 1ML IV SCH ×2 (08:33→21:00)
[2018-10-14] MEDS: FOLIC ACID 1 MG TAB PO SCH (08:33)
[2018-10-14] MEDS: ASPIRIN 81 MG ENTERIC COATED PO SCH (08:35)
[2018-10-14] MEDS: CYANOCOBALAMIN 1,000 MCG TAB PO SCH (08:35)
[2018-10-14] MEDS: FERROUS SULFATE 325 MG TAB PO SCH ×2 (08:44→16:30)
[2018-10-14] MEDS: SODIUM FERRIC GLUCONATE COMPLX 125 MG in SODIUM CHLORIDE 0.9% 100 ML 100 ML IV SCH (10:10)
--- NOTE | 2018-10-14 10:55 | Progress Note ---
DATE: Pulmonary Critical Care Progress Note SUBJECTIVE: The patient feels better. She has less congestion and less cough. PHYSICAL EXAMINATION: VITAL SIGNS: Stable. HEENT: Shows no facial swelling or erythema. CARDIAC: Reveals a regular rate and rhythm with normal S1, S2. There are no murmurs or rubs. LUNGS: Auscultation of lungs reveals clear breath sounds bilaterally. There is no wheezing. ABDOMEN: Soft, nontender. There is no rebound or guarding. EXTREMITIES: Show no leg edema or calf tenderness. IMPRESSION: 1. Aspiration pneumonia. 2. Paroxysmal atrial fibrillation. 3. Chronic systolic congestive heart failure. 4. Anemia secondary to chronic blood loss. 5. Chronic obstructive pulmonary disease. PLAN: 1. Continue current antibiotics. 2. The patient will need a GI evaluation as an outpatient. 3. The patient should be using inhaled bronchodilators. She should not use nebulizers because these have precipitated atrial fibrillation. 4. The patient should have anticoagulation for her atrial fibrillation to prevent any strokes. She also will need a Cardiology evaluation. 5. The patient will need a GI evaluation as an outpatient. Rustam Cortez MD [facility] /[id number]
--- NOTE | 2018-10-14 19:30 | NUR ---
received patient calm in bd, vitals stable
--- NOTE | 2018-10-14 19:35 | NUR ---
IM- Progress Note O/N; no events ROs; no SEYMOUR/vision changes/dizziness/skin rash/diarhea/vomiing; PE tired appearing anicteric ns1s2 REDUCED BS soft nt nd no e/t skin dry a&ox3; rae flat affect labs/meds rev'd A/P: Hypoxia AECOPD with emphesematous changes Right upper lobe PNA Right hilar LAD Hyponatremia Moderate microcytic anemia Underweight state BMI 18.4 Former smoker PLAN IV abx IV steroids nebs/antihistamine Pulm consult Plan to recheck CT chest in 4 weeks 10/11 Mod-severe anemia- transfuse; stool occult; GI consult; Folic acid and Iron-deficiency deficiency- start supplement; 10/12 Hb stable after transfusion; O2 needs- wean as ray; MBS eval 10/13 coag neg staph in 07/18 blood cx- contaminant? continue azithromycin, change ceftraixone to aztreonam. repeat blood cx; Some aspiration with thin liquids; 10/14 anemia stable; consider AC in this 78yo pt with recent blood loss... Shalom Rasheed MD, PhD
[2018-10-14] MEDS: AZITHROMYCIN 500MG/NS 250 ML 250 ML IV SCH (20:30)
[2018-10-15] VITALS: BP 132/58
[2018-10-15 05:03] VITALS: BP 128/52
[2018-10-15] MEDS: AZTREONAM 1 GM/NS 50 ML 50 ML IV SCH ×2 (06:00→14:21)
--- NOTE | 2018-10-15 06:51 | NUR ---
Assisted patient to the bathroom and back to bed, settled comfortably, vials stable
[2018-10-15 08:00] VITALS: BP 143/74
[2018-10-15] MEDS: FERROUS SULFATE 325 MG TAB PO SCH (08:00)
[2018-10-15] MEDS: SODIUM FERRIC GLUCONATE COMPLX 125 MG in SODIUM CHLORIDE 0.9% 100 ML 100 ML IV SCH (09:00)
[2018-10-15] MEDS ORDERED: VITAMIN B-121000 MCG PO (09:33)
[2018-10-15] MEDS ORDERED: PREDNISONE20 MG PO (09:33)
[2018-10-15] MEDS ORDERED: ZITHROMAX500 MG PO (09:33)
[2018-10-15] MEDS ORDERED: LORATADINE10 MG PO (09:33)
[2018-10-15] MEDS ORDERED: FERROUS SULFAT325 MG PO (09:33)
[2018-10-15] MEDS ORDERED: FOLIC ACID1 MG PO (09:33)
[2018-10-15] MEDS ORDERED: PANTOPRAZOLE SO40 MG PO (09:33)
--- NOTE | 2018-10-15 09:37 | NUR ---
Discharge summary A/P: Hypoxia AECOPD with emphesematous changes Right upper lobe PNA Right hilar LAD Hyponatremia Moderate microcytic anemia Underweight state BMI 18.4 Former smoker PLAN IV abx IV steroids nebs/antihistamine Pulm consult Plan to recheck CT chest in 4 weeks 10/11 Mod-severe anemia- transfuse; stool occult; GI consult; Folic acid and Iron-deficiency deficiency- start supplement; 10/12 Hb stable after transfusion; O2 needs- wean as ray; MBS eval 10/13 coag neg staph in 07/18 blood cx- contaminant? continue azithromycin, change ceftraixone to aztreonam. repeat blood cx; Some aspiration with thin liquids; 10/14 anemia stable; consider AC in this 78yo pt with recent blood loss... 10/15 Pt has A.fib, but has been on ASA only. She wants to talk with her PCP regarding possible initiation of AC for A>fib. At this time, not interested. d/c home with PT/HH d/c>35mins Stable f/u pcp 1 week and 1 week. Shalom Rasheed MD, PhD
[2018-10-15] MEDS: PANTOPRAZOLE 40 MG 10ML VIAL IV SCH (09:48)
[2018-10-15] MEDS: METHYLPREDNISOLONE SOD SUCC 40 MG/ML VIAL 1ML IV SCH (09:48)
[2018-10-15] MEDS: FOLIC ACID 1 MG TAB PO SCH (09:49)
[2018-10-15] MEDS: CYANOCOBALAMIN 1,000 MCG TAB PO SCH (09:49)
[2018-10-15] MEDS: LORATADINE 10 MG TAB PO SCH (09:49)
[2018-10-15] MEDS: ASPIRIN 81 MG ENTERIC COATED PO SCH (09:49)
--- NOTE | 2018-10-15 10:58 | NUR ---
EDUCATED ABOUT IMM, SIGNED, FILED IN CHART, WITH COPY LEFT WITH FAMILY AT BEDSIDE.
[2018-10-15 12:00] VITALS: BP 144/80
--- NOTE | 2018-10-15 13:00 | NUR ---
ST Note: Attended barrier rounds. Provided info re: need for outpatient dysphagia therapy secondary to SILENT aspiration of thin liquids. AYLIN Peña, to call Dr. Rasheed/Dr. Dunbar to obtain order for outpatient therapy.
--- NOTE | 2018-10-15 13:12 | NUR ---
MET W THE PT AND DTR AT THE BEDSIDE. DISCUSSED HOME ST VS OUTPT SPEECH THERAPY. EXPLAINED THE IMPORTANCE OF OUTPT ST. PT VERBALIZED UNDERSTANDING. STATES SHE HAD SPOKEN W THE THERAPIST AND AGREED TO OUTPT ST. ENCOURAGED PT TO START HOME HEALTH ONCE SHE COMPLETES HER OUTPT ST. PT VERBALIZED UNDERSTANDING. STATES SHE ALREADY HAS AN AGENCY IN MIND AND WILL SPEAK W HER PCP / DR. MAXWELL TO ARRANGE. PT WAS PROVIDED CHOICE FOR HOME O2. STATES SHE WANTED TO USE AN IN-NETWORK PROVIDER. STATES SHE HAD O2 IN THE PAST, BUT DOES NOT REMEMBER THE NAME. CHOICE LETTER WAS SIGNED AND COPY TO PT AND COPY TO CHART. REFERRAL WAS FAXED TO [facility] @ [phone]. OFF: [phone].
--- NOTE | 2018-10-15 14:28 | NUR ---
SPOKE W PT'S DTR / COURT VIA PHONE. INQUIRED ABOUT PORTABLE O2. AGREED W CURRENT PLAN. DISCUSSED OUTPATIENT SPEECH THERAPY. VERBALIZED UNDERSTANDING. EXPLAINED PROCESS OF F/U W DR. MAXWELL ONCE OUTPT [facility]. STATES SHE WANTS W [facility] IN [place], [place] @ [phone]. CONTACT: RASHID.
--- NOTE | 2018-10-15 15:53 | Progress Note ---
DATE: 10/15/2018 SUBJECTIVE: The patient feels better. She is eager to go home. PHYSICAL EXAMINATION: VITAL SIGNS: The blood pressure is 128/52 and the pulse is 61. Saturation is 100% on 2 L. HEENT: Shows no facial swelling or erythema. LYMPHATIC: Shows no submandibular, cervical, or supraclavicular adenopathy. CARDIAC: Reveals a regular rate and rhythm with a normal S1 and S2. There are no murmurs or rubs. LUNGS: Auscultation of lungs reveals rhonchorous breath sounds bilaterally. There is no wheezing. ABDOMEN: Soft, nontender. There is no rebound or guarding. EXTREMITIES: Show no leg edema or calf tenderness. There is no cyanosis clubbing. SKIN: Shows no rashes. IMPRESSION: 1. Resolving pneumonia. 2. Chronic systolic congestive heart failure. 3. Anemia secondary to chronic blood loss. 4. Paroxysmal atrial fibrillation. 5. Chronic obstructive pulmonary disease. PLAN: 1. The patient should complete outpatient antibiotics. She needs a repeat CT scan in 4-6 weeks to confirm resolution of the infiltrate. 2. The patient should continue her current bronchodilator regimen. She should not use nebulizers. 3. The patient is scheduled for GI evaluation as an outpatient. MD ASHLEY Marinelli/ANN /[id number]
--- NOTE | 2018-10-15 16:11 | NUR ---
HOME HEALTH DISCHARGE NOTE PATIENT ADDRESS WHERE SERVICE WILL BE RECEIVED: [id number] [place]. [address] PATIENT CONTACT NUMBER: [phone] NAME OF HOME HEALTH COMPANY: [facility] TELEPHONE/FAX NUMBER OF COMPANY: OFF: [phone] / FAX: [phone] ADDRESS OF COMPANY: [id number], [place] [address] SERVICES TO RECEIVE: SN / PT / ST ANTICIPATED DATE SERVICES WILL BEGIN: 10/16/2018 Please call the company above if you have not received a call to schedule a home visit within 24 hours of discharge. Addendum: 10/15/18 at 1708 by Velma Jeffery CM [place] [facility] OFF: [phone]
[2018-10-15 16:30] VITALS: BP 128/70
--- NOTE | 2018-10-15 16:30 | NUR ---
Dr. Rasheed here to write prescription medications for patient and then given to her. Daughter at bedside. Respirations are even and unlabored. Denies any pain. Written discharge instructions given to patient and copy of all to the chart. Verbal instructions also given to patient and patient and daughter verbalized understanding.
--- NOTE | 2018-10-15 16:45 | NUR ---
Right IV hep lock removed and tolerated well by patient. Home O2 at bedside and will be going with patient. Home health setup by Velma, case management coordinator with oxygen provided at home and patient will also have speech therapy at home as well. Patient will be taken via wheelchair to awaiting vehicle driven by her daughter. Denies any pain or discomfort and Respirations are even and unlabored. V/S are stable.
--- NOTE | 2018-10-16 13:59 | Diagnostic Imaging Report ---
EXAM: Modified barium swallow with Speech Pathologist INDICATION: ^r/o aspiration ^[id number] ^1400 COMPARISON: None available. RADIATION DOSE: Fluoroscopy Time: 1.7 min Dose (Kerma) Area Product: 2.47 Gycm2 Air Kerma (AK) value has been reviewed. It is below the limits set by the Radiation Protocol Committee (RPC) committee. FINDINGS: See impression IMPRESSION: Laryngeal penetration with thin liquids and used to portion of the mechanical soft consistency. Silent aspiration of thin liquids with both cup and straw administration. Silent aspiration with juice portion of mixed mechanical soft consistency. Refer to speech pathology report for further details and recommendations. Signed by: Dr. Feliz Tellez M.D. on 10/16/2018 1:56 PM
--- NOTE | 2018-10-16 16:00 | NUR ---
RECEIVED CALL FROM ANIYA AU. STATES THE PT'S DTR; GAVIN, REQUESTED THE PT NOT BE SEEN FOR 1 WEEK. CALLED TO NOTIFY ZAHIDA.
== END 2018-10-15 16:50 | disposition home or self-care (01) | DRG 871 ==
LOC: ER 10:32 → ERHOLD 22:52 → IMCU 10-09 23:46
PROVIDERS: ADMIT Internal Medicine; ATTEND Internal Medicine
PROC: 30233N1 Transfusion of Nonautologous Red Blood Cells into Peripheral Vein, Percutaneous Approach (ICD-10-PCS; principal; 2018-10-10)
DX: A41.9 Sepsis, unspecified organism (principal); J69.0 Pneumonitis due to inhalation of food and vomit; J44.0 Chronic obstructive pulmonary disease with (acute) lower respiratory infection; J44.1 Chronic obstructive pulmonary disease with (acute) exacerbation; I50.22 Chronic systolic (congestive) heart failure; E87.1 Hypo-osmolality and hyponatremia; Z68.1 Body mass index [BMI] 19.9 or less, adult; D50.9 Iron deficiency anemia, unspecified; Z79.01 Long term (current) use of anticoagulants; D50.0 Iron deficiency anemia secondary to blood loss (chronic); I48.0 Paroxysmal atrial fibrillation; I11.0 Hypertensive heart disease with heart failure; R09.02 Hypoxemia; R63.6 Underweight; Z87.891 Personal history of nicotine dependence
CPT/HCPCS: 36415; 36600; 71045; 71260; 74230; 80048; 80053; 81001; 82270; 82550; 82553; 82728; 82746; 82805; 83518; 83540; 83605; 83880; 84443; 84466; 84484; 85014; 85018; 85025; 85379; 85610; 85730; 86850; 86900; 86920; 87040; 87070; 87071; 87205; 87400; 93005; 94640; 99284; J0456; J0696; J1940; J2916; J2920; J2930; J3370; J7030; J7050; P9016; Q9967

== ENCOUNTER 2019-04-06 12:06 | Inpatient (IN) | payer MEDICAID, MEDICARE, OTHER ==
[~2019-04-06] VITALS: Ht 170.2 cm; Wt 59.6 kg
[~2019-04-06 12:06] MED LIST changes: +FERROUS SULFAT325 MG PO; +FOLIC ACID1 MG PO; +LORATADINE10 MG PO; +PANTOPRAZOLE SO40 MG PO; +PREDNISONE20 MG PO; +VITAMIN B-121000 MCG PO; +ZITHROMAX500 MG PO
[2019-04-06 12:53] LABS: BILIRUBIN,URINE SMALL (NEGATIVE); CLARITY,URINE CLEAR (CLEAR); COLOR,URINE YELLOW (YELLOW); KETONES,URINE TRACE (NEGATIVE); LEUKOCYTE ESTERASE ,URINE NEGATIVE (NEGATIVE); NITRITE,URINE NEGATIVE (NEGATIVE); PROTEIN,URINE DIPSTICK 1+ (NEGATIVE); URINE UROBILINOGEN 2 mg/dL (0.2 - 1)
[2019-04-06] MEDS ORDERED: ASPIRIN 81 MG CHEW TAB PO ONE (13:00)
[2019-04-06] MEDS ORDERED: METHYLPREDNISOLONE SOD SUCC 125 MG/2ML VIAL IV NR ×2 (13:00→15:30)
[2019-04-06] MEDS ORDERED: IPRATROPIUM BROMIDE 0.02% 2.5 ML NEB NEB ONE (13:00)
[2019-04-06 13:02] LABS: BACTERIA,URINE FEW /HPF; EPITHELIAL CELLS,URINE FEW /LPF; MUCUS,URINE MODERATE (RARE); RBC,URINE 0-5 /HPF (0-5); WBC,URINE (MAN) 0-5 /HPF (0-5)
[2019-04-06 13:05] LABS: BASOPHILS # (AUTO) 0.1 (0.0-0.1); BASOPHILS % 0.7 % (0.0-1.0); EOSINOPHILS % 0.2 % (0.0-6.0); HEMOGLOBIN 14.6 g/dL (12.0-16.0); LYMPHOCYTES # (AUTO) 1.4 (1.0-3.2); LYMPHOCYTES % 11.1 % (18.0-39.1); MEAN CORPUSCULAR HEMOGLOBIN 30.3 pg (28-32); MEAN CORPUSCULAR VOLUME 89.2 fL (81-99); MONOCYTES # (AUTO) 0.6 (0.2-0.8); MONOCYTES % 4.5 % (4.4-11.3); NEUTROPHILS # (AUTO) 9.8 (2.1-6.9); NEUTROPHILS % 77.2 % (38.7-80.0); PLATELET COUNT 145 x10e3/uL (140-360); RED BLOOD COUNT 4.82 x10e6/uL (3.6-5.1); RED CELL DISTRIBUTION WIDTH 12.7 % (11.7-14.4)
[2019-04-06 13:14] LABS: INR 0.92; PARTIAL THROMBOPLASTIN TIME 27.7 seconds (23.8-35.5); PROTHROMBIN TIME 12.9 seconds (11.9-14.5)
[2019-04-06 13:22] LABS: AMYLASE 98 U/L (25-125); LIPASE 53 U/L (8-78)
[2019-04-06 13:24] LABS: ALANINE AMINOTRANSFERASE 102 IU/L (0-55); ALBUMIN 3.2 g/dL (3.5-5.0); ALBUMIN/GLOBULIN RATIO 0.9 (0.8-2.0); ALKALINE PHOSPHATASE 149 IU/L (40-150); ANION GAP 15.2 mmol/L (8-16); BLOOD UREA NITROGEN 12 mg/dL (7-26); BUN/CREATININE RATIO 15 (6-25); CALCIUM 10.3 mg/dL (8.4-10.2); CARBON DIOXIDE 26 mmol/L (22-29); CHLORIDE 92 mmol/L (98-107); CREATINE KINASE 156 IU/L (29-168); CREATININE, SERUM 0.82 mg/dL (0.57-1.11); EST GLOMERULAR FILTRATION RATE > 60 ML/MIN (60-); GLUCOSE 106 mg/dL (74-118); POTASSIUM 4.2 mmol/L (3.5-5.1); SODIUM 129 mmol/L (136-145)
--- NOTE | 2019-04-06 13:29 | Diagnostic Imaging Report ---
Examination: Single AP view of the chest. COMPARISON: Chest radiograph 10/11/2018, CT chest 10/08/2018 INDICATION: Short of breath DISCUSSION: Pulmonary hyperinflation with emphysematous changes seen to better advantage on comparison CT. Interval development of marked asymmetric fullness of the right hilum. Patchy right upper and lower lung zone consolidations described on the comparison have largely resolved. Otherwise stable cardiomediastinal contour. No acute osseous abnormality. IMPRESSION: Progression of right hilar fullness is concerning for worsening known lymphadenopathy or new perihilar mass lesion. CT scan of the chest with contrast is suggested for further evaluation. Background emphysematous changes. Signed by: Dr. Feliz Tellez M.D. on 04/06/2019 1:26 PM
[2019-04-06] MEDS ORDERED: SODIUM CHLORIDE 0.9% 1000ML 1,000 ML IV STA (13:39)
[2019-04-06] MEDS: LEVOFLOXACIN 500MG/D5W 100ML 100 ML IV SCH (14:53)
--- NOTE | 2019-04-06 15:52 | Diagnostic Imaging Report ---
EXAMINATION: CT of the chest, abdomen and pelvis with contrast. TECHNIQUE: Spiral CT images of the chest, abdomen and pelvis were performed from the lung apices to the lesser trochanters after the intravenous administration of 100 cc Isovue-370.. Coronal and sagittal reformatted images were obtained. Pulmonary embolus protocol was performed for the chest CT. COMPARISON: Chest radiograph same day. CT chest 10/08/2018 CLINICAL HISTORY:Lower abdominal pain, abnormal chest radiograph. DISCUSSION: CHEST: Vasculature: The main pulmonary artery, right and left pulmonary arteries, and their visualized lobar and segmental branches are patent, without filling defect. The right upper lobe pulmonary artery and segmental branches and, to a lesser extent the middle and lower lobe pulmonary artery are compressed by a right hilar mass with mediastinal invasion. LUNGS AND AIRWAYS: Advanced background centrilobular and paraseptal emphysematous changes. There is a large mass centered in the right hilar region which is difficult to accurately measure; however the approximate dimensions are 7 cm craniocaudal x 8 cm AP x 6.5 cm transverse as seen on series 2 image 50. The mass encases and compresses the right upper lobe pulmonary artery, segmental branches, the distal right main pulmonary artery, and lower lobe and middle lobe branches, as well as the right mainstem bronchus, bronchus intermedius, and lobar bronchi. The mass extends into the mediastinum to the right upper and lower paratracheal stations as well as the subcarinal region. Additional nodules and consolidations are scattered throughout the right lobe, most notably in the superior segment of the right lower lobe. There are scattered tree-in-bud opacities in the periphery of the right lower lobe as well as the left upper lobe for example on series 3 image 45. Calcified granuloma in the lingula is stable. PLEURA: The pleural spaces are clear. HEART AND MEDIASTINUM: Visualized thyroid gland appears normal. No ectasia or aneurysmal dilatation of the thoracic aorta. Atherosclerotic calcification of the great vessel origins. Lymphadenopathy at the highest mediastinal station anterior to the superior vena cava measures 2 cm short axis. The superior vena cava is compressed but patent. LYMPH NODES: As above. BONES AND SOFT TISSUES: Discussed below. ABDOMEN/PELVIS: HEPATOBILIARY:Innumerable hypoattenuating lesions scattered throughout the liver. The largest individual lesion is in segment IVb and measures 1.8 cm as seen on series 5 image 20. No intrahepatic biliary dilatation. The gallbladder is unremarkable. SPLEEN: No splenomegaly. PANCREAS: No focal masses or ductal dilatation. ADRENALS: No adrenal nodules. KIDNEYS/URETERS: No hydronephrosis, stones, or solid mass lesions. PELVIC ORGANS/BLADDER: Urinary bladder is unremarkable. Uterus is neutral in position and appears normal. No adnexal mass. PERITONEUM/RETROPERITONEUM: No ascites or pneumoperitoneum. LYMPH NODES: No pelvic sidewall, retroperitoneal, or mesenteric lymphadenopathy, with the exception of a 1.2 cm portacaval lymph node a 1.6 cm franklin hepatis lymph node and an adjacent 1.4 cm franklin hepatis lymph node. VESSELS: Atherosclerotic calcification of the abdominal aorta, major branch vessels, and iliac arterial systems without aneurysmal dilatation. Portal vein, splenic vein, and central superior mesenteric vein are patent. GI TRACT: Large bowel shows no evidence of distention or wall thickening. There are diverticula scattered along the descending and sigmoid colon without adjacent inflammatory change. Normal appendix. No small bowel dilatation to suggest obstruction. BONES AND SOFT TISSUES: No osseous destructive lesions. No focal soft tissue abnormalities. IMPRESSION: No pulmonary embolus to the level of the segmental branch pulmonary arteries. Findings compatible with primary lung malignancy arising in the right hilar region and invading the mediastinum with encasement of multiple right-sided pulmonary arterial and bronchial structures as well as the superior vena cava. Pulmonary consultation for bronchoscopy with tissue sampling is suggested. Additional nodular foci of opacification with interlobular septal thickening in the superior segment of the right lower lobe may reflect postobstructive pneumonia or additional spread of malignancy. Scattered tree-in-bud nodules in the right lower lobe and left upper lobe suggests concomitant atypical infection. Innumerable hypoattenuating lesions within the liver compatible with metastatic disease. Additional metastatic franklin hepatis and portacaval lymphadenopathy. No acute intra-abdominal or pelvic CT abnormalities. Incidental findings include large bowel diverticulosis without evidence of diverticulitis, atherosclerotic vascular disease, and advanced pulmonary emphysematous changes. Signed by: Dr. Feliz Tellez M.D. on 04/06/2019 3:49 PM
--- NOTE | 2019-04-06 15:58 | NUR ---
report received at this time, patient to arrive to unit via stretcher, alert and oriented.
[2019-04-06] MEDS ORDERED: BREO INH (16:22)
[2019-04-06] MEDS ORDERED: OMEPRAZOLE40 MG (16:22)
[2019-04-06] MEDS ORDERED: MIDODRINE HCL5 MG (16:22)
[2019-04-06] MEDS ORDERED: DIGOXIN125 MCG (16:22)
[2019-04-06] MEDS ORDERED: AZELASTINE137 MCG/0. INH (16:22)
[2019-04-06] MEDS ORDERED: FLOVENT DISKUS50 MCG INH (16:22)
--- NOTE | 2019-04-06 16:24 | NUR ---
HOME MEDS OBTAINED AND ENTERED INTO THE COMPUTER
--- NOTE | 2019-04-06 16:54 | NUR ---
patient arrived to unit via stretcher, alert and oriented and in no distress. call sotomayor within reach and bed in lowest position.
[2019-04-06 17:05] VITALS: BP 150/71
[2019-04-06 17:10] VITALS: BP 150/71
[2019-04-06] MEDS: SODIUM CHLORIDE 0.9% 1000ML 1,000 ML IV SCH (17:30)
[2019-04-06] MEDS ORDERED: INFLUENZA VIRUS VAC SPLIT INJ 0.5 ML SYR IM NR (18:00)
[2019-04-06 18:15] VITALS: BP 150/71
[2019-04-06] MEDS ORDERED: ACETAMINOPHEN 325 MG TAB PO PRN (18:30)
--- NOTE | 2019-04-06 19:05 | NUR ---
rounded with hourly shift nurse, patient aware of change and in no distress. call sotomayor within reach and bed in lowest position. family at bedside.
--- NOTE | 2019-04-06 19:16 | NUR ---
Report received and walking rounds complete. Pt A&O and resting in bed and no apparent distress. All safety measures ensured and pt call sotomayor near. Pt family at bedside.
[2019-04-06 19:40] VITALS: BP 140/66
[2019-04-06 20:00] VITALS: BP 140/66
[2019-04-06] MEDS ORDERED: ZOLPIDEM TARTRATE 5 MG TAB PO PRN (21:00)
[2019-04-06 21:12] LABS: CREATINE KINASE MB 4.8 ng/mL (0-5.0)
[2019-04-07] VITALS (8 sets, daily range): BP systolic 118–162; BP diastolic 63–88
[2019-04-07] MEDS: SODIUM CHLORIDE 0.9% 1000ML 1,000 ML IV SCH ×3 (04:13→19:11)
[2019-04-07 06:37] LABS: BASOPHILS % 0.3 % (0.0-1.0); EOSINOPHILS % 0.2 % (0.0-6.0); HEMATOCRIT 36.1 % (34.2-44.1); HEMOGLOBIN 12.6 g/dL (12.0-16.0); LYMPHOCYTES # (AUTO) 1.4 (1.0-3.2); LYMPHOCYTES % 11.1 % (18.0-39.1); MEAN CORPUSCULAR HEMOGLOBIN 30.8 pg (28-32); MEAN CORPUSCULAR HGB CONC 34.9 g/dL (31-35); MEAN CORPUSCULAR VOLUME 88.3 fL (81-99); MONOCYTES # (AUTO) 0.6 (0.2-0.8); MONOCYTES % 4.4 % (4.4-11.3); NEUTROPHILS # (AUTO) 9.9 (2.1-6.9); NEUTROPHILS % 78.5 % (38.7-80.0); PLATELET COUNT 109 x10e3/uL (140-360); RED BLOOD COUNT 4.09 x10e6/uL (3.6-5.1); RED CELL DISTRIBUTION WIDTH 12.8 % (11.7-14.4)
--- NOTE | 2019-04-07 07:00 | NUR ---
rounded with overnight babysitter nurse, patient aware of change and in no distress with family member at bedside. call sotomayor within reach and bed in lowest position.
[2019-04-07 07:15] LABS: ALANINE AMINOTRANSFERASE 71 IU/L (0-55); ALBUMIN 2.6 g/dL (3.5-5.0); ALBUMIN/GLOBULIN RATIO 0.9 (0.8-2.0); ALKALINE PHOSPHATASE 136 IU/L (40-150); ANION GAP 14.3 mmol/L (8-16); BLOOD UREA NITROGEN 10 mg/dL (7-26); BUN/CREATININE RATIO 14 (6-25); CALCIUM 9.2 mg/dL (8.4-10.2); CARBON DIOXIDE 22 mmol/L (22-29); CHLORIDE 97 mmol/L (98-107); CREATININE, SERUM 0.69 mg/dL (0.57-1.11); EST GLOMERULAR FILTRATION RATE > 60 ML/MIN (60-); GLUCOSE 104 mg/dL (74-118); POTASSIUM 4.3 mmol/L (3.5-5.1); SODIUM 129 mmol/L (136-145)
--- NOTE | 2019-04-07 07:28 | NUR ---
Bedside report and walking rounds complete with day shift RN.
[2019-04-07 07:40] LABS: CREATINE KINASE MB 3.7 ng/mL (0-5.0)
--- NOTE | 2019-04-07 08:34 | NUR ---
History and Physical cc: sob HPI: 78yoF, PCP , developed sob. Pt seen in October for PNA, asked to f/u with for repeat CT, but pt did not make appt. Per daughter at bedside, pt did not want to make the appt. Pt quit cigs 5yrs ago, now with large lung mass with extension into mediastinum. PMH: COPD, A.fib, PNA, HTN, Hyponatremia, PSHx: unknown alleriges; see emr F[facility]/Sh; ; occ etoh; quit cigs; 38pk yrs meds; see MAR ROs; no SEYMOUR/vision changes/dizziness/skin rash/diarhea/vomiing; labs/meds; revd A/P: Right lung mass 7x8x6.5cm with extension into mediastinum Emphysema Post-obstructive PNA Hyponatremia Low BMI Former smoker PLAN IR for bx; Onc eval. Pulm consult Abx O2 supportive care Lovenox daily Shalom Rasheed MD, PhD
[2019-04-07] MEDS: LEVOFLOXACIN 500MG/D5W 100ML 100 ML IV SCH (08:35)
[2019-04-07] MEDS: PANTOPRAZOLE SOD 40 MG TABEC PO SCH (08:50)
[2019-04-07] MEDS: LORATADINE 10 MG TAB PO SCH (08:50)
[2019-04-07] MEDS: CYANOCOBALAMIN 1,000 MCG TAB PO SCH (08:50)
[2019-04-07] MEDS ORDERED: PANTOPRAZOLE SOD 40 MG TABEC PO SCH (09:00)
[2019-04-07] MEDS ORDERED: CYANOCOBALAMIN 1,000 MCG TAB PO SCH (09:00)
[2019-04-07] MEDS ORDERED: BREO INH PRN (09:15)
[2019-04-07 11:35] LABS: BAND NEUTROPHILS % (MANUAL) 4 %; LYMPHOCYTES % (MANUAL) 11 % (19-48); MONOCYTES % (MANUAL) 4 % (3.4-9.0)
[2019-04-07 11:36] LABS: NEUTROPHILS % (MANUAL) 81 % (40-74); PLATELET ESTIMATE SLIGHTLY DECREASED; PLATELET MORPHOLOGY COMMENT NORMAL; RBC MORPHOLOGY COMMENT NORMAL
--- NOTE | 2019-04-07 11:37 | NUR ---
call received from lab for critical value in patient's blood culture showing gram positive cocci and clusters. notified Dr Rasheed and sheryl ROSSA give one time dose of vancomycin 1 gram.
[2019-04-07] MEDS ORDERED: VANCOMYCIN 1GM/NS 250 ML 250 ML IV ONE (11:45)
[2019-04-07] MEDS ORDERED: AZELASTINE HCL 137 MCG NASAL SPRAY NS PRN (12:15)
--- NOTE | 2019-04-07 15:36 | Consultation ---
DATE OF CONSULTATION: Pulmonary Critical Care Consultation CHIEF COMPLAINT: Difficulty breathing and abnormal chest x-ray. HISTORY OF PRESENT ILLNESS: The patient is an 79-year-old woman. She has a history of pneumonia, treated at [facility] in late September. She has not improved since then. She has had recurrent dyspnea and congestion. She went to see her primary physician and received some Solu-Medrol and antibiotics with no benefit. The patient now comes to the hospital. Repeat CT scan shows worsening infiltrate in the right lung and mediastinal area consistent with stage IV metastatic bronchogenic carcinoma. The patient does not complain of weight loss. PAST SURGICAL HISTORY: Noncontributory. PAST MEDICAL HISTORY: 1. History of recurrent bronchitis. 2. Atrial fibrillation. 3. Gastroesophageal reflux. SOCIAL HISTORY: The patient quit smoking many years ago. She is not an active drinker. FAMILY HISTORY: The patient has not had a significant family history. ALLERGIES: THE PATIENT IS ALLERGIC TO CODEINE. REVIEW OF SYSTEMS: The patient does not complain of fever or weight loss. She has no headache. She has no chest pain. She does have some dyspnea on exertion. She has no abdominal pain. She has no nausea or vomiting. She has no leg edema. PHYSICAL EXAMINATION: VITAL SIGNS: The patient is afebrile. The vital signs are stable. HEENT: Shows no facial swelling or erythema. The nasal mucosa is normal. The oropharynx is normal. LYMPHATIC: Shows no submandibular, cervical, or supraclavicular adenopathy. CARDIAC: Reveals regular rate and rhythm with normal S1 and S2. There are no murmurs or rubs. LUNGS: Auscultation of lungs reveals clear breath sounds bilaterally. There is no wheezing. ABDOMEN: Soft and nontender. There is no rebound or guarding. EXTREMITIES: Shows no leg edema or calf tenderness. There is no cyanosis or clubbing. SKIN: Shows no rashes. NEUROLOGICAL: Shows no focal abnormalities. IMPRESSION: 1. 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 2. History of anemia secondary to chronic blood loss. 3. Paroxysmal atrial fibrillation. 4. Chronic obstructive pulmonary disease. PLAN: 1. The patient should have a bronchoscopy with a transcarinal needle aspiration and an endobronchial biopsy. 2. Despite the fact that this is stage IV bronchogenic carcinoma, obtaining a cell type is important. She may be a candidate for immunotherapy or a tyrosine kinase inhibitor such as Tarceva. 3. We will discuss with Oncology and Dr. Rasheed. 4. Discussed with family, the patient and nursing. MD ASHLEY Marinelli/ANN /[id number]
--- NOTE | 2019-04-07 15:40 | Consultation ---
DATE OF CONSULTATION: 04/07/[address] Shalom Rasheed. HISTORY OF PRESENT ILLNESS: Kristi Holder is an 79-year-old white female, who has been referred to me for evaluation of lung cancer. The patient had presented with shortness of breath, subsequently was seen and had a prolonged discussion with the patient and the two daughters. SOCIAL HISTORY: History of excessive smoking. FAMILY HISTORY: Noncontributory. ALLERGIES: REPORTED NONE. MEDICATIONS: At this time: 1. Tylenol. 2. Lovenox. 3. Ferrous sulfate. 4. Levaquin. 5. Claritin. 6. Protonix. 7. Ambien. REVIEW OF SYSTEMS: HEENT: Normal. CARDIAC: Normal. RESPIRATORY: History of emphysema. GI: Normal. : Normal. MUSCULOSKELETAL: Normal. SKIN AND BREASTS: Normal. NEUROENDOCRINE: Essentially normal. PHYSICAL EXAMINATION: GENERAL: A very cachectic female, no palpable adenopathy. HEART: Within normal limits. LUNGS: Showing distant breath sounds. ABDOMEN: Soft. Liver is felt 2 inches intercostal margin. RECTAL: Deferred. CENTRAL NERVOUS SYSTEM: Essentially normal. EXTREMITIES: Essentially normal. LABORATORY DATA: Shows a hemoglobin of 14.6, hematocrit of 43, white count 12,730, platelets are reported 145,000. Chemistry shows a sodium of 129, potassium 4.2, chloride is 92, CO2 26, BUN 12, creatinine 0.8, glucose 106, calcium I 10.3, bilirubin 1.0, SGOT high at 141, SGPT high at 102, total protein is low at 5.6, albumin low at 2.6. IMAGING: Consists of a CT of the chest, which shows the patient to have a large mass on the right hilar region. This is approximately 7 x 8 x 6.5 cm. The mass is encasing and compressive in the right upper lobe and pulmonary artery middle lobe branch, some branches as well as right mainstem bronchus. The mass extends into the mediastinum to the right upper and lower paratracheal stations as well as the subcarinal region, most notably in the superior segment of the right lower lobe. There are scattered tree-in-bud opacities in the periphery of the right lower lobe as well as the left upper lobe. The lymphadenopathy at the highest mediastinal station anterior to the superior vena cava is 2 cm. CAT scan of the abdomen shows innumerable hypodensity lesions scattered throughout the liver. The largest being 1.8 cm. Adrenals are reported essentially negative. There is a 1.2 cm portacaval lymph node 1.6 cm franklin hepatic lymph node and adjacent 1.4 cm franklin hepatis lymph node. IMPRESSION: 1. Hyponatremia. 2. Hypercalcemia. 3. High liver function tests. 4. Hypoalbuminemia. 5. Hypoproteinemia. 6. Emphysema. 7. Right lung cancer. 8. Liver metastases. PLAN, COMMENTS, AND SUGGESTIONS: This is far advanced lung cancer. Because of the presentation, it is very possible this is a small cell lung cancer. Because of the poor performance status and extremely advanced cancer with multiple franklin hepaticus lymph nodes, liver metastases, I suggest hospice. It would be of academic interest to do the biopsy and treat her because of extremely poor performance status. Thank you very much for allowing me to participate in the management of this patient. MD LENORA Angeles/LOISL /[id number] cc: MD Lai Munoz MD
[2019-04-07] MEDS: FERROUS SULFATE 325 MG TAB PO SCH (16:12)
[2019-04-07] MEDS ORDERED: ENOXAPARIN SOD INJ 40 MG/0.4 ML SYR SC SCH (17:00)
[2019-04-07] MEDS: TRAMADOL HCL 50 MG TAB PO PRN ×2 (17:28→23:52)
--- NOTE | 2019-04-07 18:50 | NUR ---
walking rounds made with painter shipyard nurse, patient aware of change and in no distress. call sotomayor within reach and bed in lowest position.
--- NOTE | 2019-04-07 19:08 | NUR ---
PT IS RESTING IN BED. RESPIRATION IS EVEN AND UNLABORED, NO DISTRESS NOTED. BED IN THE LOWEST POSITION, LOCKED, AND CALL LIGHT WITHIN REACH. WILL CONTINUE TO MONITOR.
[2019-04-08] VITALS (7 sets, daily range): BP systolic 143–158; BP diastolic 64–83
[2019-04-08] MEDS: SODIUM CHLORIDE 0.9% 1000ML 1,000 ML IV SCH (06:58)
[2019-04-08] MEDS: FLOVENT INH SCH ×3 (07:00→19:00)
[2019-04-08] MEDS: [UNRECOGNIZED DRUG - OTHER] INH SCH ×3 (07:00→19:00)
--- NOTE | 2019-04-08 07:32 | NUR ---
IM- progress note O/N no events ROs; no SEYMOUR/vision changes/dizziness/skin rash/diarhea/vomiing; PE: tired appearing; anicteric ns1s2 reduced BS soft nt nd no e/t alert; appropriate skin dry n. affect labs/meds; revd A/P: Right lung mass 7x8x6.5cm with extension into mediastinum Emphysema Post-obstructive PNA Hyponatremia Low BMI Former smoker PLAN IR for bx; Onc eval. Pulm consult Abx O2 supportive care Lovenox daily 04/08 family wants Bx. await; check Na level Shalom Rasheed MD, PhD
[2019-04-08] MEDS: FERROUS SULFATE 325 MG TAB PO SCH ×2 (08:00→18:11)
[2019-04-08] MEDS: LORATADINE 10 MG TAB PO SCH (09:00)
[2019-04-08] MEDS: CYANOCOBALAMIN 1,000 MCG TAB PO SCH (09:00)
[2019-04-08] MEDS: FOLIC ACID 1 MG TAB PO SCH (09:00)
[2019-04-08] MEDS: PANTOPRAZOLE SOD 40 MG TABEC PO SCH (09:00)
[2019-04-08] MEDS: LEVOFLOXACIN 500MG/D5W 100ML 100 ML IV SCH (09:00)
[2019-04-08] MEDS: DIGOXIN 0.125 MG TAB PO SCH (09:00)
--- NOTE | 2019-04-08 11:20 | NUR ---
CALL DR GALLO ABOUT LAB RESULTS. WILL CALL ME BACK.
--- NOTE | 2019-04-08 12:50 | NUR ---
PT DOWN FOR PROCEDURE. CALL OF OR ABOUT LABS RESULTS.
[2019-04-08] MEDS ORDERED: EPINEPHRINE HCL 1:1000 1ML 1 MG/ML AMP ONE (13:11)
[2019-04-08] MEDS ORDERED: LIDOCAINE HCL 4% 50 ML BTL ONE (13:11)
[2019-04-08] MEDS ORDERED: SEVOFLURANE INHAL SOLN 250 ML PEN BTL ONE (14:18)
[2019-04-08] MEDS ORDERED: LIDOCAINE HCL 2% LOCAL INJ 5 ML SDV VIAL INJ ONE (14:18)
[2019-04-08] MEDS ORDERED: PROPOFOL IV EMULSION 10 MG/ML 20 ML VIAL ONE (14:18)
[2019-04-08] MEDS: SODIUM CHLORIDE 1 GM TAB PO SCH ×2 (18:11→21:36)
--- NOTE | 2019-04-08 18:52 | NUR ---
Nutrition Deferral Note Reason for visit: RN screen- MST2 Reason for deferral: Pt out of room for procedure Will continue to attempt screening and nutrition interventions per protocol Attempted visits: 1310, 1520 Signed: Reina Ellis RD, LD, [facility]
--- NOTE | 2019-04-08 20:55 | Operative Report ---
DATE OF PROCEDURE: SURGEON: Rustam Cortez MD PROCEDURES: Bronchoscopy with transcarinal needle aspiration and endobronchial biopsy. PREOPERATIVE DIAGNOSIS: Bronchogenic carcinoma. POSTOPERATIVE DIAGNOSIS: Bronchogenic carcinoma. CONSENT: Consent was obtained from the patient and the family. ANESTHESIA: The Anesthesia service provided an LMA airway and MAC anesthesia. DESCRIPTION OF PROCEDURE: The patient was placed in a supine position. Anesthesia placed an LMA airway. The scope was used to visualize the vocal cords. The scope was passed through the cords without difficulty. The tracheal mucosa was normal. The tarsha was normal. The left tracheobronchial tree was then examined. The left upper lobe and lingula were normal to the subsegmental level. There were no endobronchial lesions. The left lower lobe was examined. There were no endobronchial lesions. The scope was then repositioned into the right tracheobronchial tree. The patient had an endobronchial lesion in the bronchus intermedius and right lower lobe bronchus. The patient also had narrowing and almost complete obstruction of the right upper lobe bronchus. The scope was then repositioned above the tarsha. A needle was placed through the tarsha into the subcarinal space. Cells were aspirated. This procedure was repeated x1. Pathology examined the specimens and felt there was adequate cellular material. The scope was repositioned into the right tracheobronchial tree. Biopsies x7 were obtained from the bronchus intermedius and proximal right lower lobe bronchus. Washings and brushings for cytology were also obtained. COMPLICATIONS: None. ESTIMATED BLOOD LOSS: 5 mL. Rustam Cortez MD [facility]/MODL /[id number]
[2019-04-08] MEDS: TRAMADOL HCL 50 MG TAB PO PRN (22:48)
[2019-04-09] VITALS (7 sets, daily range): BP systolic 140–161; BP diastolic 64–86
--- NOTE | 2019-04-09 05:46 | NUR ---
IM- progress note O/N no events ROs; no SEYMOUR/vision changes/dizziness/skin rash/diarhea/vomiing; PE: tired appearing; anicteric ns1s2 reduced BS soft nt nd no e/t alert; appropriate skin dry n. affect labs/meds; revd A/P: Right lung mass 7x8x6.5cm with extension into mediastinum Emphysema Post-obstructive PNA Hyponatremia Low BMI Former smoker PLAN IR for bx; Onc eval. Pulm consult Abx O2 supportive care Lovenox daily 04/08 family wants Bx. await; check Na level 04/09 check Na; salt tabs; fluid restrict; f/u Bx. once done can go home. Shalom Rasheed MD, PhD
[2019-04-09] MEDS: SODIUM CHLORIDE 1 GM TAB PO SCH ×3 (05:51→21:41)
[2019-04-09] MEDS ORDERED: SODIUM CHLORIDE1 GM PO (06:10)
[2019-04-09 06:12] LABS: BASOPHILS # (AUTO) 0.1 (0.0-0.1); BASOPHILS % 0.6 % (0.0-1.0); EOSINOPHILS # (AUTO) 0.1 (0.0-0.4); EOSINOPHILS % 0.4 % (0.0-6.0); HEMATOCRIT 35.8 % (34.2-44.1); HEMOGLOBIN 12.7 g/dL (12.0-16.0); LYMPHOCYTES # (AUTO) 1.5 (1.0-3.2); LYMPHOCYTES % 12.3 % (18.0-39.1); MEAN CORPUSCULAR HEMOGLOBIN 31.2 pg (28-32); MEAN CORPUSCULAR HGB CONC 35.5 g/dL (31-35); MONOCYTES # (AUTO) 0.5 (0.2-0.8); MONOCYTES % 3.7 % (4.4-11.3); NEUTROPHILS # (AUTO) 9.4 (2.1-6.9); NEUTROPHILS % 76.5 % (38.7-80.0); PLATELET COUNT 92 x10e3/uL (140-360); RED BLOOD COUNT 4.07 x10e6/uL (3.6-5.1); RED CELL DISTRIBUTION WIDTH 12.7 % (11.7-14.4)
[2019-04-09] MEDS ORDERED: MAGNESIUM HYDROXIDE 30 ML UDC PO ONE (06:15)
[2019-04-09 06:32] LABS: ALANINE AMINOTRANSFERASE 63 IU/L (0-55); ALBUMIN 2.8 g/dL (3.5-5.0); ALBUMIN/GLOBULIN RATIO 0.9 (0.8-2.0); ALKALINE PHOSPHATASE 167 IU/L (40-150); ANION GAP 15.1 mmol/L (8-16); BLOOD UREA NITROGEN 9 mg/dL (7-26); BUN/CREATININE RATIO 13 (6-25); CALCIUM 8.9 mg/dL (8.4-10.2); CARBON DIOXIDE 22 mmol/L (22-29); CHLORIDE 85 mmol/L (98-107); CREATININE, SERUM 0.69 mg/dL (0.57-1.11); EST GLOMERULAR FILTRATION RATE > 60 ML/MIN (60-); GLUCOSE 68 mg/dL (74-118); POTASSIUM 4.1 mmol/L (3.5-5.1)
[2019-04-09 06:33] LABS: SODIUM 118 mmol/L (136-145)
--- NOTE | 2019-04-09 06:42 | NUR ---
Orders received from DR. Rasheed to give enema if laxatives do not work this morning.
[2019-04-09 06:50] LABS: LYMPHOCYTES % (MANUAL) 11 % (19-48); MONOCYTES % (MANUAL) 5 % (3.4-9.0); MYELOCYTES % (MANUAL) 2 % (0-0); NEUTROPHILS % (MANUAL) 82 % (40-74); PLATELET ESTIMATE SLIGHTLY DECREASED; RBC MORPHOLOGY COMMENT NORMAL
[2019-04-09 06:51] LABS: PLATELET MORPHOLOGY COMMENT NORMAL
[2019-04-09] MEDS: FLOVENT INH SCH ×2 (07:00→20:00)
[2019-04-09] MEDS: [UNRECOGNIZED DRUG - OTHER] INH SCH ×2 (07:00→20:00)
--- NOTE | 2019-04-09 07:28 | NUR ---
PHARMACY CALLED UNIT TO VERIFY ORDER FOR 2% NS WITH NURSE. DR. GALLO CALLED AND ORDER VERIFIED, DR. GALLO WOULD LIKE 2% NS TO BE ADMINISTERED AND THEN SODIUM LAB DRAW TO BE COLLECTED AT 1200 AND THEN RESULTS TEXTED TO DR. GALLO.
[2019-04-09] MEDS ORDERED: SODIUM CHLORIDE IV SCH (07:30)
[2019-04-09] MEDS: STERILE WATER IV SCH ×2 (07:30→13:49)
[2019-04-09] MEDS ORDERED: STERILE WATER IV SCH (07:30)
[2019-04-09] MEDS: SODIUM CHLORIDE IV SCH ×2 (07:30→13:49)
[2019-04-09] MEDS: FERROUS SULFATE 325 MG TAB PO SCH ×2 (08:00→17:10)
--- NOTE | 2019-04-09 09:00 | NUR ---
Held Iron PO patient is constipated.
[2019-04-09] MEDS: LORATADINE 10 MG TAB PO SCH (11:45)
[2019-04-09] MEDS: LEVOFLOXACIN 500MG/D5W 100ML 100 ML IV SCH (11:45)
[2019-04-09] MEDS: FOLIC ACID 1 MG TAB PO SCH (11:45)
[2019-04-09] MEDS: DOCUSATE SODIUM 100 MG CAP PO SCH ×2 (11:45→17:01)
[2019-04-09] MEDS: PANTOPRAZOLE SOD 40 MG TABEC PO SCH (11:46)
[2019-04-09] MEDS: DIGOXIN 0.125 MG TAB PO SCH (11:46)
[2019-04-09] MEDS: SENNA-S TABLET PO SCH (11:47)
[2019-04-09] MEDS: CYANOCOBALAMIN 1,000 MCG TAB PO SCH (11:47)
[2019-04-09] MEDS: METHYLPREDNISOLONE SOD SUCC 40 MG/ML VIAL 1ML IV SCH (13:05)
--- NOTE | 2019-04-09 13:11 | Diagnostic Imaging Report ---
EXAMINATION: CHEST XRAY LINE PLACEMENT INDICATION: Line placement COMPARISON: Chest radiograph of 04/06/2019 FINDINGS: Image quality is degraded by patient respiratory motion artifact. LINES/TUBES:Interval placement of right PICC line with tip terminating in the SVC. EKG leads overlie the chest. LUNGS:The lungs are well-inflated. Right hilar opacity corresponds with hilar mass described on recent chest CT of 04/06/2019. PLEURA:No pleural effusion or pneumothorax. MEDIASTINUM:The cardiomediastinal silhouette appears unchanged in size and shape. BONES/SOFT TISSUES:No acute osseous injury. ABDOMEN:No free air under the diaphragm. IMPRESSION: Interval placement of right PICC line terminating in the SVC. Right hilar opacity corresponds with right hilar mass described on recent chest CT of 04/06/2019. Signed by: Flavio Mcclain MD on 04/09/2019 1:07 PM
--- NOTE | 2019-04-09 13:20 | NUR ---
Called Dr. Rasheed made him aware of most current chest x-ray read the entire impression received orders to use the PICC line.
--- NOTE | 2019-04-09 13:21 | NUR ---
Notified Dr. Rasheed of critical lab Sodium 188
[2019-04-09] MEDS ORDERED: IPRATROPIUM BROMIDE 0.02% 2.5 ML NEB NEB PRN (16:45)
--- NOTE | 2019-04-09 16:45 | Progress Note ---
DATE: SUBJECTIVE: The patient underwent bronchoscopy and transcarinal needle aspiration yesterday. She tolerated the procedure well. Today, she has increased wheezing and some increased dyspnea. She also has a low sodium of 118. PHYSICAL EXAMINATION: VITAL SIGNS: The patient is afebrile. The vital signs are stable. The blood pressure is 156/72 and the heart rate is 94. HEENT: Shows no facial swelling or erythema. CARDIAC: Reveals regular rate and rhythm with normal S1 and S2. LUNGS: Auscultation of lungs reveals a prolonged expiratory phase with wheezing bilaterally. ABDOMEN: Soft, nontender. There is no rebound or guarding. EXTREMITIES: Show no leg edema or calf tenderness. There is no cyanosis clubbing. SKIN: Shows no rashes. NEUROLOGICAL: Shows no focal abnormalities. IMPRESSION: 1. 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 2. Syndrome of inappropriate antidiuretic hormone. 3. Wheezing and airway obstruction. 4. Paroxysmal atrial fibrillation. 5. Chronic obstructive pulmonary disease. PLAN: 1. Begin Solu-Medrol 60 mg IV q.12 hours. 2. Stat portable chest x-ray. 3. Continue antibiotics. 4. Await pathology results. 5. The patient is scheduled to receive 2% sodium for her syndrome of inappropriate antidiuretic hormone release. Rustam Cortez MD [facility]/LOISL /[id number]
[2019-04-09] MEDS: ALPRAZOLAM 0.25 MG TAB PO PRN (16:59)
--- NOTE | 2019-04-09 17:33 | NUR ---
Nutrition Intervention Note RD Recommendation(s) for Physician: -Rec liberalizing to regular -Rec Ensure Enlive BID to increase protein calorie intake Plan of Care: RD following, monitoring for tolerance and adequacy, ONS rec Nutrition reason for involvement: Nutrition risk trigger MST RD Assessment 04/09 79yo F, who was admitted for difficulty breathing. Visited pt in the room. Pt reported poor appetite due to shortness of breath. Pt stated I couldnt eat much today because of my breathing. Pt denied any nausea or vomiting. Pt reported constipation and laxative was given. No chewing or swallowing difficulty reported. Weight has been stable ~122-124lb. Pt usually drinks 2 Ensure at home. Will continue to monitor and follow. Principal Problems/Diagnoses: 1. 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 2. Syndrome of inappropriate antidiuretic hormone. 3. COPD PMH: COPD, A.fib, PNA, HTN, Hyponatremia I/O: +590mL/ no output recorded GI: abdomen soft, non-tender, constipation Skin: no pressure wound noted Labs: (04/09) Na 118 L, glucose 68 L Meds: feosol, colace, NaCl, solu-medrol, vitamin B12, protonix, folic acid Ht: 67in Wt: 122lb (per pt) BMI: 19.1kg/m2 IBW: 135lb Malnutrition Evaluation (04/09/19) The patient does not meet criteria for a specified degree of malnutrition at this time. Will re-evaluate at follow-up as appropriate. Energy intake: Poor appetite today but ate 75% since admission. Weight loss: Weight has been stable. Fat loss: Moderate hollow around orbital region Muscle loss: Moderate temporal depression, protrusion of acromion process Supporting Evidence: Fluid accumulation: no accumulation identified Functional Status: no changes Nutrition Prescription (Diet Order): cardiac diet Estimated Nutritional Needs: Calories: 1650 1925kcal(30-35kcal/kg/d) Weight used : CBW Protein : 83 110g(1.5-2g/kg/d) Weight used: CBW Diet Adequacy: Not meeting calorie needs, Not meeting protein needs Tolerance: Tolerating PO Diet Education Needs Assessment: Diet education not indicated. Nutrition Care Level: low Nutrition Diagnosis: Inadequate oral intake related to COPD as evidenced by pt reported new onset of poor appetite. Goal: Patient will meet 75-100% of estimated needs by follow up Progress: Not Progressing Interventions: General healthful diet, Commercial beverage Monitoring/Evaluation: Total energy intake, Total protein intake, diet, Liquid supplement, Weight change Signed: Shanika Hollis MS, RD, LD
[2019-04-09] MEDS ORDERED: IPRATROPIUM BROMIDE 0.02% 2.5 ML NEB NEB SCH (19:00)
[2019-04-10] VITALS (8 sets, daily range): BP systolic 136–168; BP diastolic 69–85
[2019-04-10] MEDS: METHYLPREDNISOLONE SOD SUCC 40 MG/ML VIAL 1ML IV SCH ×2 (00:34→14:17)
[2019-04-10] MEDS: SODIUM CHLORIDE IV SCH ×2 (04:58→10:10)
[2019-04-10] MEDS: STERILE WATER IV SCH ×2 (04:58→10:10)
[2019-04-10] MEDS: SODIUM CHLORIDE 1 GM TAB PO SCH ×3 (06:17→22:00)
--- NOTE | 2019-04-10 06:41 | NUR ---
IM- progress note O/N no events ROs; no SEYMOUR/vision changes/dizziness/skin rash/diarhea/vomiing; PE: tired appearing; anicteric ns1s2 reduced BS soft nt nd no e/t alert; appropriate skin dry n. affect labs/meds; revd A/P: Right lung mass 7x8x6.5cm with extension into mediastinum Emphysema Post-obstructive PNA Hyponatremia Low BMI Former smoker PLAN IR for bx; Onc eval. Pulm consult Abx O2 supportive care Lovenox daily 04/08 family wants Bx. await; check Na level 04/09 check Na; salt tabs; fluid restrict; f/u Bx. once done can go home. 04/10 Na improving on 2%. Plan to d/c home on salt tabs; will need f/u with Onc and RadOnc once discharged. Shalom Rasheed MD, PhD
[2019-04-10] MEDS: FLOVENT INH SCH ×2 (07:02→19:47)
[2019-04-10] MEDS: [UNRECOGNIZED DRUG - OTHER] INH SCH ×2 (07:02→19:47)
--- NOTE | 2019-04-10 07:29 | NUR ---
Received patient, lying in bed with eyes open. Respiration even and unlabored. Family at bedside. Jatinder light in reach.
[2019-04-10] MEDS: LORATADINE 10 MG TAB PO SCH (09:25)
[2019-04-10] MEDS: FERROUS SULFATE 325 MG TAB PO SCH ×2 (09:25→16:49)
[2019-04-10] MEDS: FOLIC ACID 1 MG TAB PO SCH (09:25)
[2019-04-10] MEDS: DOCUSATE SODIUM 100 MG CAP PO SCH ×2 (09:25→16:49)
[2019-04-10] MEDS: SENNA-S TABLET PO SCH (09:27)
[2019-04-10] MEDS: DIGOXIN 0.125 MG TAB PO SCH (09:27)
[2019-04-10] MEDS: PANTOPRAZOLE SOD 40 MG TABEC PO SCH (09:27)
[2019-04-10] MEDS: CYANOCOBALAMIN 1,000 MCG TAB PO SCH (09:34)
[2019-04-10] MEDS: LEVOFLOXACIN 500MG/D5W 100ML 100 ML IV SCH (09:39)
[2019-04-10] MEDS: IPRATROPIUM BROMIDE 0.02% 2.5 ML NEB NEB PRN ×2 (10:45→19:47)
[2019-04-10] MEDS: LEVALBUTEROL HCL SOLN NEBU 0.63 MG/3 ML NEB INH PRN ×2 (10:50→19:47)
[2019-04-10] MEDS: ALPRAZOLAM 0.25 MG TAB PO PRN ×2 (11:11→23:00)
--- NOTE | 2019-04-10 15:46 | Progress Note ---
DATE: SUBJECTIVE: The patient's pathology shows small cell carcinoma. She had more wheezing yesterday, which has improved somewhat with corticosteroids and bronchodilators. She still complains of some wheezing and difficulty breathing. OBJECTIVE: VITAL SIGNS: The patient is afebrile, the blood pressure is 142/75, saturation is 96% on 2 L, the heart rate has increased to 107. HEENT: Shows no facial swelling or erythema. CARDIAC: Reveals regular rate and rhythm with a normal S1 and S2. LUNGS: Auscultation of lungs reveals wheezing bilaterally. ABDOMEN: Soft, nontender. There is no rebound or guarding. EXTREMITIES: Show no leg edema or calf tenderness. IMPRESSION: 1. 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 2. Wheezing and airway obstruction. 3. Impending right upper lobe atelectasis. 4. Syndrome of inappropriate anti-diuretic hormone. 5. Paroxysmal atrial fibrillation. 6. Chronic obstructive pulmonary disease. PLAN: 1. Given the rapid progression of the extensive small cell carcinoma and the impending threat to the vasculature and airways on the right side of the mediastinum, I think radiation and/or chemotherapy would benefit the patient. 2. Continue corticosteroids. 3. Continue bronchodilators. 4. Complete Oncology evaluation. 5. Continue fluid restriction and sodium tablets. Rustam Cortez MD H/LOISL /[id number]
[2019-04-10] MEDS ORDERED: SODIUM CHLORIDE IV SCH (18:00)
[2019-04-10] MEDS ORDERED: STERILE WATER IV SCH (18:00)
--- NOTE | 2019-04-10 19:00 | NUR ---
patient received awake, alert, lying quietly in bed. no c/o pain noted. ivf continue to infuse without difficulty.pm assessment complete. family noted at the bedside. patient/family instructed to call for assistance when needed.
--- NOTE | 2019-04-10 19:06 | NUR ---
Report given to machinist 2nd shift. patient lying in bed with eyes open. Family members at bedside. Respiration even and unlabored without SOB. IV fluid infusing, telemetry on. Call light in reach.
--- NOTE | 2019-04-10 22:30 | NUR ---
report on this patient given to Kelvin Cunningham RN at this time. care of this patient taken over by Kelvin Cunningham RN at this time.
--- NOTE | 2019-04-10 23:49 | NUR ---
RECEIVED PT IN BED AOX2PT HAS CHEST CONGESTED AND WHEEZING RT UPPER PICC.CALL LIGHT WITH IN REACH .CONTINUE TO MONITOR
[2019-04-11] VITALS (7 sets, daily range): BP systolic 155–166; BP diastolic 63–95
[2019-04-11] MEDS: METHYLPREDNISOLONE SOD SUCC 40 MG/ML VIAL 1ML IV SCH ×2 (01:15→12:31)
--- NOTE | 2019-04-11 05:18 | Consultation ---
DATE OF CONSULTATION: 04/10/2019 REQUESTING PHYSICIAN: Shalom Rasheed MD CONSULTING PHYSICIAN: Raegan Dee MD, Hematology-Oncology Service. REASON FOR CONSULTATION: Evaluation and management of patient with suspected metastatic lung cancer. HISTORY OF PRESENTING ILLNESS: Ms. Holder is a very pleasant 79-year-old female with no significant past medical history other than GERD and atrial fibrillation, presented to the Emergency Department due to shortness of breath. She underwent workup including CT scan of the chest, abdomen, and pelvis revealing mass in the right hilar region invading the mediastinum with encasement of the multiple right-sided pulmonary arterial and bronchial structure as well as superior vena cava. CT also demonstrated innumerable hypoattenuating lesion within the liver compatible with metastatic disease as well as presence of metastatic franklin hepatis and portacaval lymphadenopathy. Adjacent to the mass, infiltrate was noted. The patient was admitted to inpatient floor, started on antibiotics. She was seen and evaluated by Pulmonary Service and underwent bronchoscopy and transcarinal fine-needle aspiration biopsy. Now, Hematology-Oncology has been consulted to assist with the management. Presently, the patient lying comfortably, however, still have feeling fatigue and tired. She gets short of breath with exertion. She is on oxygen via nasal cannula. PAST MEDICAL HISTORY: 1. History of pneumonia. 2. GERD. 3. History of atrial fibrillation. PAST SURGICAL HISTORY: Bronchoscopy and transbronchial biopsy. SOCIAL HISTORY: The patient has a history of smoking, however, quit many years ago. She denies alcohol use or illicit drug use. FAMILY HISTORY: Negative for cancer. ALLERGIES: PATIENT HAS ALLERGY TO CODEINE. CURRENT MEDICATIONS: Reviewed as per electronic medical record. REVIEW OF SYSTEMS: A 14-point review of systems negative except as mentioned in history of presenting illness. PHYSICAL EXAMINATION: VITAL SIGNS: Reviewed as per electronic medical record. HEENT: PERRLA. Extraocular movement intact. Head is atraumatic and normocephalic. NECK: Supple. CVS: S1 and S2 audible. RESPIRATORY: Decreased bilateral air entry. ABDOMEN: Soft. Positive bowel sounds. EXTREMITIES: Negative cyanosis. NEURO: The patient is alert and awake. LABORATORY DATA: White blood cell count of 12.2, hemoglobin 12.7, hematocrit 35.8, platelets 92,000. BUN 9, creatinine 0.6, calcium 8.9, sodium 132. ASSESSMENT AND PLAN: Ms. Holder is a very pleasant 79-year-old female with known history of atrial fibrillation and gastroesophageal reflux disease, presents to the emergency department due to progressive shortness of breath. She underwent an imaging including CT chest, abdomen revealing no pulmonary embolism, but mass arising in the right hilar region invading the mediastinum, encasement of the pulmonary artery, bronchial structure as well as superior vena cava. CT also demonstrated innumerable liver lesions consistent with metastatic disease. The patient underwent bronchoscopy and transbronchial biopsy. Results are pending. Hematology-Oncology has been consulted to assist with the management. I reviewed the records and discussed at length with the patient about her current disease and importance of further workup. The patient's performance status is significantly poor. She is not a candidate for aggressive chemotherapy. Her options are best supportive care with comfort measures versus some gentle immunotherapy. I had a lengthy discussion with the patient about the difficulties and logistics of getting treatment and need to have family support. She is persistent with pursestring treatment rather than comfort major and would like to try immunotherapies if possible. At this point, I have recommended to wait on the biopsy results and depending on the biopsy results, she may be a candidate for immunotherapy including PD-L1 inhibitor. If this return to service inspector to be a small cell lung cancer, she may be a candidate for single agent without chemotherapy treatment with Tecentriq. Again, treatment depend on her recovery from current infection. Treatment will be in outpatient setting. I also discussed option of DNR/DNI. At this point, the patient would like to think about it and let us know. We will try to address goals of care during this hospitalization. Thank you for the consult. I will continue to be available. Please call with questions. MD TERRY Prado/MODL /[id number]
[2019-04-11] MEDS ORDERED: ALPRAZOLAM0.25 MG PO (06:26)
[2019-04-11] MEDS ORDERED: COLACE100 MG PO (06:26)
[2019-04-11] MEDS ORDERED: PREDNISONE20 MG PO (06:26)
[2019-04-11] MEDS ORDERED: SODIUM CHLORIDE1 GM PO (06:26)
[2019-04-11] MEDS ORDERED: SENNA S TABLET1 EACH PO (06:26)
--- NOTE | 2019-04-11 06:28 | NUR ---
D/C summary Principal Dx: Right lung mass 7x8x6.5cm with extension into mediastinum Emphysema Post-obstructive PNA Hyponatremia Low BMI Secondary Dx: Former smoker PLAN IR for bx; Onc eval. Pulm consult Abx O2 supportive care Lovenox daily 04/08 family wants Bx. await; check Na level 04/09 check Na; salt tabs; fluid restrict; f/u Bx. once done can go home. 04/10 Na improving on 2%. Plan to d/c home on salt tabs; will need f/u with Onc and RadOnc once discharged. d/c home f/u with PCP 1 week and within 3 days and 1 week fair to tenable d/c>35mins Shalom Rasheed MD, PhD
--- NOTE | 2019-04-11 06:49 | NUR ---
PT RESTED DURING THE NIGHT .DENIES PAIN PT CHEST CONGESTED .FAMILY AT THE BEDSIDE .CALL LIGHT WITH IN REACH .CONTINUE TO MONITOR
[2019-04-11] MEDS: SODIUM CHLORIDE 1 GM TAB PO SCH (06:55)
[2019-04-11] MEDS ORDERED: ONDANSETRON HCL INJ 2MG/ML 2ML 2 MG/ML VIAL IV PRN (07:00)
--- NOTE | 2019-04-11 07:15 | NUR ---
PATIENT IS AWAKE AND IN STABLE CONDITION WITH NO S/S OF RESPIRATORY DISTRESS. NO PAIN VOICED. TELEMETRY AND CONTINUOUS PULSE OX APPLIED. O2 APPLIED AT 2L NC. BED ALARM APPLIED. CALL LIGHT IS WITHIN REACH, PATIENT INSTRUCTED TO CALL FOR ASSISTANCE NEEDED
--- NOTE | 2019-04-11 07:21 | NUR ---
BEDSIDE REPORT GIVEN TO THE ONCOMING NURSE
[2019-04-11] MEDS: FOLIC ACID 1 MG TAB PO SCH (08:04)
[2019-04-11] MEDS: DIGOXIN 0.125 MG TAB PO SCH (08:04)
[2019-04-11] MEDS: DOCUSATE SODIUM 100 MG CAP PO SCH (08:04)
[2019-04-11] MEDS: SENNA-S TABLET PO SCH (08:04)
[2019-04-11] MEDS: PANTOPRAZOLE SOD 40 MG TABEC PO SCH (08:04)
[2019-04-11] MEDS: LEVOFLOXACIN 500MG/D5W 100ML 100 ML IV SCH (08:04)
[2019-04-11] MEDS: CYANOCOBALAMIN 1,000 MCG TAB PO SCH (08:04)
[2019-04-11] MEDS: LORATADINE 10 MG TAB PO SCH (08:04)
[2019-04-11] MEDS: FERROUS SULFATE 325 MG TAB PO SCH (08:04)
[2019-04-11] MEDS: IPRATROPIUM BROMIDE 0.02% 2.5 ML NEB NEB PRN (11:03)
[2019-04-11] MEDS: LEVALBUTEROL HCL SOLN NEBU 0.63 MG/3 ML NEB INH PRN (11:03)
[2019-04-11] MEDS: ALPRAZOLAM 0.25 MG TAB PO PRN (12:41)
--- NOTE | 2019-04-11 12:53 | NUR ---
Received order for home o2 set up. Spoke to pt and daughter at bedside. They stated pt had oxygen previously, but they do not remember the name of the company. Daughter expressed that they would like to have portable concentrator for pt if possible. Ok with using any company that takes pt's insurance. Choice letter signed for [employer]. Signed copy placed in chart. Copy to pt. Jalen with [employer] will be by shortly to discuss transition to portable concentrator, costs...etc. with pt and daughter.
--- NOTE | 2019-04-11 13:13 | NUR ---
Jalen Lyn came by to chart picker order / clinical for home oxygen. He has portable tanks to deliver to pt's bedside.
[2019-04-11] MEDS ORDERED: ZOFRAN8 MG PO (16:39)
--- NOTE | 2019-04-11 17:23 | NUR ---
PATIENT DISCHARGE HOME- PATIENT OFF THE UNIT AT 1711 PER WHEELCHAIR ACCOMPANIED BY RN AND PCT TO THE FRONT LOBBY. PATIENT IS IN STABLE CONDITION WITH NO S/S OF RESPIRATORY DISTRESS. NO PAIN VOICED. 02 APPLIED AT 3L NC. PICC LINE REMOVED- DRESSING APPLIED. DISCHARGE TEACHING, INSTRUCTIONS, AND MEDICATIONS GIVEN TO THE PATIENT AND HER DAUGHTER (COURT). ALL PERSONAL ITEMS TAKEN WITH THE PATIENT AND HER DAUGHTER.
--- NOTE | 2019-04-11 19:56 | Progress Note ---
DATE: SUBJECTIVE: The patient has less wheezing today. She has less dyspnea. She still reports some weakness. PHYSICAL EXAMINATION: VITAL SIGNS: The patient is afebrile. The blood pressure is 156/64 and the saturation is 95% on 2 L. Heart rate is 110. HEENT: Shows no facial swelling or erythema. CARDIAC: Reveals regular rate and rhythm with normal S1 and S2. LUNGS: Auscultation of lungs reveals clear breath sounds bilaterally. There are some decreased breath sounds in the right upper lobe. ABDOMEN: Soft, nontender. There is no rebound or guarding. EXTREMITIES: Shows no leg edema or calf tenderness. IMPRESSION: 1. Extensive small cell carcinoma. 2. Right upper lobe atelectasis. 3. Syndrome of inappropriate anti-diuretic hormone release. 4. Atrial fibrillation. 5. Chronic obstructive pulmonary disease. PLAN: 1. The patient will follow up with Oncology on Monday. Dr. Dee will arrange for an MRI to complete her staging. She is tentatively scheduled to begin palliative radiation and atezolizumab. 2. Home oxygen. 3. Pain control. 4. Salt tablets and fluid restriction for SIADH. Rustam Cortez MD [facility]/ANN /[id number]
--- NOTE | 2019-04-11 22:07 | Progress Note ---
DATE: 04/11/2019 Followup Note CHIEF COMPLAINT: The patient with metastatic lung cancer, admitted with shortness of breath. OBJECTIVE: VITAL SIGNS: Reviewed as per electronic medical record. LABORATORY DATA: White blood cell count of 12.2, hemoglobin 12.7, hematocrit 35.8, platelets 92,000. Sodium 134. ASSESSMENT AND PLAN: Ms. Holder is a very pleasant 79-year-old female with known history of atrial fibrillation and gastroesophageal reflux disease, who presented to the emergency department due to progressive shortness of breath. She underwent imaging including CT chest and abdomen revealing no pulmonary embolism, but mass arising in the right hilar region invading the mediastinum, encasement of the pulmonary artery, bronchial structure as well as superior vena cava. CT also demonstrated innumerable liver lesions consistent with metastatic disease. The patient underwent bronchoscopy and transbronchial biopsies. Pathology showed a small cell lung cancer. The patient has been recommended to be started on systemic therapy in outpatient setting. If she is discharged, we will follow up in outpatient. MD TERRY Prado/ANN /[id number]
== END 2019-04-11 17:11 | disposition home or self-care (01) | DRG 163 ==
LOC: ER 12:06 → ERHOLD 15:31 → MED/SURG3 16:54
PROVIDERS: ADMIT Internal Medicine; ATTEND Internal Medicine
PROC: 0B928ZX Drainage of Carina, Via Natural or Artificial Opening Endoscopic, Diagnostic (ICD-10-PCS; 2019-04-08)
PROC: 0BD28ZX Extraction of Carina, Via Natural or Artificial Opening Endoscopic, Diagnostic (ICD-10-PCS; 2019-04-08)
PROC: 0BB68ZX Excision of Right Lower Lobe Bronchus, Via Natural or Artificial Opening Endoscopic, Diagnostic (ICD-10-PCS; 2019-04-08)
PROC: 0BB Respiratory System, Excision (ICD-10-PCS; principal; 2019-04-08 13:30)
PROC: 0B9 Respiratory System, Drainage (ICD-10-PCS; 2019-04-08 13:30)
PROC: 02HV33Z Insertion of Infusion Device into Superior Vena Cava, Percutaneous Approach (ICD-10-PCS; 2019-04-09)
DX: C34.91 Malignant neoplasm of unspecified part of right bronchus or lung (principal); J18.9 Pneumonia, unspecified organism; C78.7 Secondary malignant neoplasm of liver and intrahepatic bile duct; Z68.1 Body mass index [BMI] 19.9 or less, adult; E22.2 Syndrome of inappropriate secretion of antidiuretic hormone; J43.9 Emphysema, unspecified; D63.8 Anemia in other chronic diseases classified elsewhere; I48.0 Paroxysmal atrial fibrillation; Z87.891 Personal history of nicotine dependence; E83.52 Hypercalcemia; E88.09 Other disorders of plasma-protein metabolism, not elsewhere classified; E77.8 Other disorders of glycoprotein metabolism; E86.0 Dehydration; Z79.01 Long term (current) use of anticoagulants; D50.0 Iron deficiency anemia secondary to blood loss (chronic)
CPT/HCPCS: 31622; 31625; 36415; 36569; 71045; 71260; 74177; 80053; 80162; 81001; 82150; 82550; 82553; 83690; 83880; 84295; 84484; 85025; 85610; 85730; 87040; 87071; 87205; 88112; 88172; 88173; 88305; 88342; 93005; 94640; 94664; 99284; J0171; J1956; J2001; J2405; J2920; J2930; J3370; J7030